=== PATIENT | female | born 1970 | race Caucasian/White ===

== ENCOUNTER 2017-06-11 03:36 | Emergency (ER) | payer SELFPAY ==
[~2017-06-11] VITALS: Ht 165.1 cm; Wt 58.5 kg
[2017-06-11 03:42] VITALS: Ht 165.1 cm; Wt 58.5 kg
== END 2017-06-11 05:24 | disposition left against medical advice (07) ==
LOC: E/R 03:36
DX: Z53.21 Procedure and treatment not carried out due to patient leaving prior to being seen by health care provider (principal)

== ENCOUNTER 2017-07-23 09:58 | Inpatient (IN) | payer OTHER ==
[~2017-07-23] VITALS: Ht 165.1 cm; Wt 58.7 kg
[2017-07-23] MEDS ORDERED: ACETAMINOPHEN 325 MG TAB PO PRN ×2 (11:00→19:00)
[2017-07-23] MEDS ORDERED: HYDROmorphONE 1 MG/ML SYG IV STA ×2 (11:02→16:43)
[2017-07-23] MEDS: ONDANSETRON 4 MG INJ IV PRN ×2 (11:11→16:48)
--- NOTE | 2017-07-23 11:22 | ERA ---
ER Documentation Chief Complaint Date/Time DATE: 07/23/17 TIME: 11:10 Chief Complaint SENT FROM [facility] FOR ADMISSION DX: LUNG MASS HPI 47-year-old female with a history of right-sided lung mass diagnosed about 5-6 months ago presenting with worsening chest pain. She was transferred from [facility] for admission to this hospital. She was told her mass was getting bigger. She has not been able to get a biopsy yet. She has associated shortness of breath but no fever or chills. She was already accepted for admission by the hospitalist here. Patient currently complains of 10 out of 10 right-sided chest pain, worse with inspiration. Pain radiates to her back, no alleviating factors. ROS All systems reviewed and are negative except as per history of present illness. Allergies Allergies: Coded Allergies: No Known Allergy (Unverified , 07/23/17) PMhx/Soc History of Surgery: Yes (HYSTERECTOMY,TUBAL LIGATION) Anesthesia Reaction: No Hx Neurological Disorder: No Hx Respiratory Disorders: No Hx Cardiac Disorders: No Hx Psychiatric Problems: No Hx Miscellaneous Medical Probl: Yes (LUNG MASS) Hx Alcohol Use: No Hx Substance Use: No Hx Tobacco Use: Yes Smoking Status: Current some day smoker FmHx Family History: No diabetes Physical Exam Vitals Vital Signs Date Time Temp Pulse Resp B/P Pulse Ox O2 Delivery O2 Flow Rate FiO2 07/23/17 10:13 98.0 99 16 107/56 99 Physical Exam Const: Nontoxic, crying secondary to pain, no respiratory distress Head: Atraumatic Eyes: Normal Conjunctiva ENT: Normal External Ears, Nose and Mouth. Neck: Full range of motion..~ No meningismus. Resp: Clear to auscultation bilaterally. No crackles, wheezes Cardio: Regular rate and rhythm, no murmurs Abd: Soft, non tender, non distended. Normal bowel sounds Skin: No petechiae or rashes Back: No midline or flank tenderness Ext: No cyanosis, or edema. No calf tenderness Neur: Awake and alert Psych: Normal Mood and Affect Results 24 hrs Current Medications Medications (Trade) Dose Ordered Sig/Danish Route PRN Reason Start Time Stop Time Status Last Admin Dose Admin Ondansetron HCl (Zofran Inj) 4 mg BRIDGE ORDER PRN IV NAUSEA AND/OR VOMITING 07/23/17 11:00 07/24/17 10:59 Acetaminophen (Tylenol Tab) 650 mg ER BRIDGE PRN PO MILD PAIN/FEVER 07/23/17 11:00 07/24/17 10:59 Hydromorphone HCl (Dilaudid) 1 mg ONCE STAT IV 07/23/17 11:02 07/23/17 11:03 DC Procedures/MDM Patient is presenting with a right-sided lung mass causing right-sided chest pain that is worsening. Workup was done at the outside hospital and showed no significant abnormalities in her lab work. There was no evidence of pneumonia. I do not think any further workup is necessary in the ED. The patient will be admitted to the hospitalist group for further workup. She was treated with Dilaudid IV for her pain. Dr Sorensen was consulted for admission. Departure Diagnosis: Primary Impression: Right-sided chest pain Additional Impression: Mass of right lung Condition: CHAYITO Richardson MD Jul 23, 2017 11:20
[2017-07-23 13:33] LABS: BASOPHILS % 0.3 % (0.0-2.0); EOSINOPHILS # 0.5 10^3/ul (0.0-0.5); HEMATOCRIT 33.7 % (37.0-47.0); HEMOGLOBIN 10.9 g/dl (12.0-16.0); LYMPHOCYTES # 2.1 10^3/ul (0.8-2.9); LYMPHOCYTES % 19.9 % (15.0-51.0); MEAN CORPUSCULAR HEMOGLOBIN 27.4 pg (29.0-33.0); MEAN CORPUSCULAR HGB CONC 32.3 g/dl (32.0-37.0); MEAN CORPUSCULAR VOLUME 84.7 fl (82.0-101.0); MEAN PLATELET VOLUME 9.3 fl (7.4-10.4); MONOCYTE # 0.8 10^3/ul (0.3-0.9); MONOCYTES % 7.1 % (0.0-11.0); NEUTROPHIL # 7.3 10^3/ul (1.6-7.5); NEUTROPHILS % 67.5 % (39.0-77.0); PLATELET COUNT 321 10^3/UL (140-415); RED BLOOD COUNT 3.98 10^6/ul (4.20-5.40); RED CELL DISTRIBUTION WIDTH 12.5 % (11.5-14.5); WHITE BLOOD COUNT 10.8 10^3/ul (4.8-10.8)
[2017-07-23 13:54] LABS: ALANINE AMINOTRANSFERASE 26 IU/L (13-69); ALBUMIN 3.8 g/dl (3.3-4.9); ALBUMIN/GLOBULIN RATIO 0.97; ALKALINE PHOSPHATASE 97 IU/L (42-121); ANION GAP 11 (8-16); ASPARTATE AMINO TRANSFERASE 27 IU/L (15-46); BILIRUBIN,INDIRECT 0.1 mg/dl (0-1.1); BILIRUBIN,TOTAL 0.1 mg/dl (0.2-1.3); BLOOD UREA NITROGEN 9 mg/dl (7-20); CALCIUM 9.3 mg/dl (8.4-10.2); CARBON DIOXIDE 28 mmol/L (21-31); CHLORIDE 104 mmol/L (97-110); CREATININE 0.63 mg/dl (0.44-1.00); GLUCOSE 98 mg/dl (70-220); POTASSIUM 4.6 mmol/L (3.5-5.1); SODIUM 138 mmol/L (135-144); TOTAL PROTEIN 7.7 g/dl (6.1-8.1)
[2017-07-23 14:09] LABS: TROPONIN-I < 0.012 ng/ml (0.00-0.12)
--- NOTE | 2017-07-23 15:48 | HP ---
Date/Time of Note Date/Time of Note DATE: 07/23/17 TIME: 15:44 Assessment/Plan VTE Prophylaxis VTE Prophylaxis Intervention: SCD's Assessment/Plan Chief Complaint/Hosp Course Impression and plan 1. Right lung tumor. We will get clinical engineering director to follow. Tentative plan for right lung tumor biopsy. Will provide with analgesics as needed. 2. Nicotine use. Cessation advised. 3. Anemia. Monitor level. Follow-up on iron panel. Admission process time is greater than 40 minutes Discussed plan of care with Dr. Baltazar Problems: HPI/ROS Admit Date/Time Admit Date/Time Hx of Present Illness This is a 47-year-old female with recent diagnosis of right lung tumor worked up in March 2017 we does follow-up with outpatient clinical engineering director Dr. Trujillo, who came to [facility] from outside hospital ([place]) due to insurance issue due to reports of increased right-sided chest pain. Patient reports that her chest pain started yesterday afternoon 1 day prior to admission and progressively got worse. No associated symptoms. She does report that she states the pain is 10 out of 10 at times and feels like something is "pushing on her chest". Patient did reportedly have CT scan imaging done at [place] that showed her to have an enlarging right lung mass. On the results she was noted to be slightly anemic hemoglobin of 10.9 and hematocrit of 33.7. Basic metabolic unremarkable. Vital signs overall remained stable at present and she reports no shortness of breath with oxygen saturation at 90% room air. Patient did state that she was tentatively planned for needle guided biopsy as outpatient however due to her worsening pain she subsequently went to [facility]. We will evaluate her for the aformentiond issues. ROS 12 Point review of systems obtained and entirely negative except that mentioned in history of present illness PMH/Family/Social Past Medical History Medical/surgical history 1. Recent diagnosis of right lung tumor in March 2017 2. Hysterectomy Family History Significant Family History: other (Mother: Colon cancer) Social History Smoking Status: Former smoker (Quit smoking in March 2017 however reports a 25+ year history of cigarette smoking 1 pack every 2-3 days) Drug Use: none Exam/Review of Systems Vital Signs Vitals Vital Signs Date Time Temp Pulse Resp B/P Pulse Ox O2 Delivery O2 Flow Rate FiO2 07/23/17 12:33 84 18 94/68 98 Room Air 07/23/17 10:13 98.0 Exam Constitutional: alert, oriented Psych: no complaints Head: normocephalic Neck: non-tender, supple Respiratory: diminished breath sounds (right lung field) Gastrointestinal: non-tender, soft Musculoskeletal: nl extremities to inspection Neurological: CROWN BUFFER II-XII intact, nl mental status, nl speech Skin: nl turgor Labs Result Diagram: 07/23/17 1320 07/23/17 1320 REANNA BARROSO Jul 23, 2017 15:48
--- NOTE | 2017-07-23 17:29 | CONS ---
Date/Time of Note Date/Time of Note DATE: 07/23/17 TIME: 17:28 Consultation Date/Type/Reason Admit Date/Time Date of Consultation: Jul 23, 2017 Type of Consultation: pulmonary Hx of Present Illness dictated # [id number] Psychological: no complaints Social History Smoking Status: Former smoker (Quit smoking in March 2017 however reports a 25+ year history of cigarette smoking 1 pack every 2-3 days) Drug Use: none Exam/Review of Systems Vital Signs Vitals Vital Signs Date Time Temp Pulse Resp B/P Pulse Ox O2 Delivery O2 Flow Rate FiO2 07/23/17 16:52 99 18 96/60 98 Room Air 07/23/17 10:13 98.0 Results Result Diagram: 07/23/17 1320 07/23/17 1320 Results 24 hrs Laboratory Tests Test 07/23/17 13:20 White Blood Count 10.8 Red Blood Count 3.98 L Hemoglobin 10.9 L Hematocrit 33.7 L Mean Corpuscular Volume 84.7 Mean Corpuscular Hemoglobin 27.4 L Mean Corpuscular Hemoglobin Concent 32.3 Red Cell Distribution Width 12.5 Platelet Count 321 Mean Platelet Volume 9.3 Neutrophils % 67.5 Lymphocytes % 19.9 Monocytes % 7.1 Eosinophils % 5.0 Basophils % 0.3 Nucleated Red Blood Cells % 0.0 Neutrophils # 7.3 Lymphocytes # 2.1 Monocytes # 0.8 Eosinophils # 0.5 Basophils # 0.0 Nucleated Red Blood Cells # 0.0 Sodium Level 138 Potassium Level 4.6 Chloride Level 104 Carbon Dioxide Level 28 Anion Gap 11 Blood Urea Nitrogen 9 Creatinine 0.63 Glucose Level 98 Calcium Level 9.3 Total Bilirubin 0.1 L Direct Bilirubin 0.00 Indirect Bilirubin 0.1 Aspartate Amino Transf (AST/SGOT) 27 Alanine Aminotransferase (ALT/SGPT) 26 Alkaline Phosphatase 97 Troponin I < 0.012 Total Protein 7.7 Albumin 3.8 Globulin 3.90 H Albumin/Globulin Ratio 0.97 ERIK PATTEN Jul 23, 2017 17:29
[2017-07-23 17:43] VITALS: BP 88/50; RESP 18
[2017-07-23 17:55] VITALS: Ht 165.1 cm; Wt 58.7 kg
[2017-07-23] MEDS ORDERED: BISACODYL 10 MG SUPP PR PRN (19:00)
[2017-07-23] MEDS ORDERED: ONDANSETRON 4 MG INJ IV PRN (19:00)
[2017-07-23] MEDS ORDERED: HYDROCODONE/APAP (5/325) TAB PO PRN (19:00)
[2017-07-23] MEDS ORDERED: DOCUSATE SODIUM 100 MG CAP PO PRN (19:00)
[2017-07-23] MEDS ORDERED: ACETAMINOPHEN 650 MG SUPP PR PRN (19:00)
[2017-07-23] MEDS ORDERED: MAGNESIUM HYDROXIDE 30ML CUP PO PRN (19:00)
[2017-07-23 20:17] VITALS: BP 92/50; RESP 18
[2017-07-23] MEDS: FAMOTIDINE 20 MG INJ IV SCH (20:48)
[2017-07-23] MEDS: morphine 2 MG INJ IV PRN (20:53)
[2017-07-24] MEDS: HYDROCODONE/APAP (5/325) TAB PO PRN ×2 (00:42→23:56)
[2017-07-24] MEDS: ONDANSETRON 4 MG INJ IV PRN ×3 (00:42→20:57)
[2017-07-24 02:44] VITALS: BP 86/48; RESP 16
[2017-07-24 05:57] LABS: BASOPHILS % 0.2 % (0.0-2.0); EOSINOPHILS # 0.5 10^3/ul (0.0-0.5); EOSINOPHILS % 4.2 % (0.0-7.0); HEMATOCRIT 33.7 % (37.0-47.0); HEMOGLOBIN 10.5 g/dl (12.0-16.0); LYMPHOCYTES # 2.2 10^3/ul (0.8-2.9); LYMPHOCYTES % 17.4 % (15.0-51.0); MEAN CORPUSCULAR HEMOGLOBIN 26.3 pg (29.0-33.0); MEAN CORPUSCULAR HGB CONC 31.2 g/dl (32.0-37.0); MEAN CORPUSCULAR VOLUME 84.3 fl (82.0-101.0); MEAN PLATELET VOLUME 9.8 fl (7.4-10.4); MONOCYTE # 0.9 10^3/ul (0.3-0.9); MONOCYTES % 6.8 % (0.0-11.0); NEUTROPHIL # 8.9 10^3/ul (1.6-7.5); NEUTROPHILS % 71.2 % (39.0-77.0); PLATELET COUNT 338 10^3/UL (140-415); RED CELL DISTRIBUTION WIDTH 12.6 % (11.5-14.5); WHITE BLOOD COUNT 12.5 10^3/ul (4.8-10.8)
[2017-07-24 06:18] LABS: ALBUMIN 3.8 g/dl (3.3-4.9); ALBUMIN/GLOBULIN RATIO 1.05; BILIRUBIN,INDIRECT 0.3 mg/dl (0-1.1); BILIRUBIN,TOTAL 0.3 mg/dl (0.2-1.3); CALCIUM 9.4 mg/dl (8.4-10.2); CHOL/HDL RATIO 6.2 RATIO; CREATININE 0.71 mg/dl (0.44-1.00); MAGNESIUM 2.1 mg/dl (1.7-2.5); PHOSPHORUS 4.7 mg/dl (2.5-4.9); POTASSIUM 4.5 mmol/L (3.5-5.1); TOTAL PROTEIN 7.4 g/dl (6.1-8.1)
[2017-07-24 06:43] LABS: T3 UPTAKE 33.7 % (23.5-40.5)
[2017-07-24 07:18] LABS: THYROID STIMULATING HORMONE 0.754 MIU/L (0.465-4.680)
[2017-07-24] MEDS: morphine 2 MG INJ IV PRN ×4 (08:08→20:57)
[2017-07-24] MEDS: FAMOTIDINE 20 MG INJ IV SCH (08:08)
--- NOTE | 2017-07-24 08:09 | CONS ---
DATE OF ADMISSION: 07/23/2017 DATE OF CONSULTATION: PULMONARY CONSULTATION REASON FOR REFERRAL: Evaluation of lung mass. HISTORY OF PRESENT ILLNESS: Ms. Emery is a pleasant 47-year-old white female who came into the em ergency room with complaints of not feeling well with chest pain involving right upper chest as well as right arm pain. According to the patient, she had been diagnosed with lung tumor involving righ t upper lobe in March of this year and has undergone PET imaging as well as CT scan; however, no biop sy has been done yet. The patient denies any shortness of breath, any fever, chills, hemoptysis, sp utum production. PAST MEDICAL HISTORY: 1. As above. No other medical illnesses. 2. No history of any surgeries. MEDICATIONS: The patient currently on: 1. Acetaminophen on a p.r.n. basis. 2. Dilaudid on a p.r.n. basis. 3. Zofran on a p.r.n. basis. ALLERGIES: NONE. SOCIAL HISTORY: Patient smokes about pack a day. No history of alcohol or drug abuse. FAMILY HISTORY: She is . She has 3 children, no history of any malignancy in the family. 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 REVIEW OF SYSTEMS: Denies any headache, seizures, visual changes, sinus symptoms, postnasal drip, d ysphagia, odynophagia. Complains of mild right upper chest discomfort. Denies any hoarseness, any cough, sputum production, wheezing, any abdominal pain, nausea, vomiting, melena, hematochezia, any urinary symptoms, any edema, orthopnea, PND or any weight loss, any skin changes, any new arthritis symptoms. PHYSICAL EXAMINATION: GENERAL: Young woman, awake, alert, currently in no distress. VITAL SIGNS: Temperature is 98 degree Fahrenheit, respiratory rate is 18 per minute, pulse 88 per m inute, blood pressure is 107/56, O2 sat 99% on room air. HEENT: Supple neck, no JVD, no lymphadenopathy, midline trachea, no thyromegaly. Pharynx clear, no neck bruits. Patient has fair dentition. Pupils are equal and reactive to light. CHEST: Clear to auscultation. HEART: S1, S2 audible. No murmurs, regular rhythm. ABDOMEN: Soft, nontender, nondistended. Bowel sounds audible. EXTREMITIES: No edema, no clubbing. Pulses 2+ bilaterally. NEUROLOGIC: MOLD REPAIR TECHNICIAN exam: No focal deficit. LABORATORY DATA: White count is 10.8, hemoglobin 10.9, platelet count of 321. Sodium 138, potassiu m 4.6, chloride 104, bicarbonate 28, glucose 98, BUN 9, creatinine 0.6, AST of 27, ALT 26. ASSESSMENT: The patient admitted with right chest discomfort with recent diagnosis of lung mass carmelita iting biopsy. RECOMMENDATIONS: Continue current treatment. The patient is going to have a CT of the chest ayad t from home for our review. According to her, a CT scan of chest was done in early June. Furt her recommendations to be done once CT imaging is obtained and reviewed. Patient may need either br onchoscopy or a needle CT biopsy. Dictated By: ERIK PATTEN MD AQ/NTS Conf#: [id number] DID#: [id number] CC: DAISHA SIM MD; EMILY KEARNS MD;*EndCC*
[2017-07-24 08:15] VITALS: BP 91/52; RESP 20
--- NOTE | 2017-07-24 09:28 | CONS ---
Date/Time of Note Date/Time of Note DATE: 07/24/17 TIME: 09:26 Assessment/Plan Assessment/Plan Chief Complaint/Hosp Course dictated # [id number] Problems: Additional Assessment/Plan Outside CD of the CT chest was reviewed from June 23, 2017 showing by 10 x 6 cm right upper lobe mass. Assessment and recommendations; 1. Patient admitted for evaluation of right upper lobe mass which is appearing to be primary bronchogenic carcinoma until proven otherwise. Schedule CT-guided biopsy. Consultation Date/Type/Reason Admit Date/Time Jul 23, 2017 at 10:52 Initial Consult Date 07/23/17 Type of Consultation: pulmonary 24 HR Interval Summary Free Text/Dictation Patient's condition is stable. Denies any shortness of breath, chest pain. Feeling of chest congestion and tightness has resolved. General exam; middle-aged woman, awake alert, currently in no distress. Exam/Review of Systems Vital Signs Vitals Vital Signs Date Time Temp Pulse Resp B/P Pulse Ox O2 Delivery O2 Flow Rate FiO2 07/24/17 08:15 98.6 90 20 91/52 98 07/23/17 16:52 Room Air Intake and Output 07/23/17 07/23/17 07/24/17 15:00 23:00 07:00 Intake Total 420 ml Balance 420 ml Exam HEENT exam; supple neck, no JVD. No lymphadenopathy. Midline trachea. No thyromegaly. Patient has fair dentition. Chest exam; clear to auscultation. S1-S2 audible, no murmurs. Regular rhythm. Abdomen exam; soft, nontender. No organomegaly. Bowel sounds audible. Extremities; no peripheral edema. No clubbing. Pulses 2+ bilaterally. HOP TRAINER exam; no focal deficit. Results Result Diagram: 07/24/17 0457 07/24/17 0457 Results 24 hrs Laboratory Tests Test 07/23/17 13:20 07/24/17 04:57 White Blood Count 10.8 12.5 H Red Blood Count 3.98 L 4.00 L Hemoglobin 10.9 L 10.5 L Hematocrit 33.7 L 33.7 L Mean Corpuscular Volume 84.7 84.3 Mean Corpuscular Hemoglobin 27.4 L 26.3 L Mean Corpuscular Hemoglobin Concent 32.3 31.2 L Red Cell Distribution Width 12.5 12.6 Platelet Count 321 338 Mean Platelet Volume 9.3 9.8 Neutrophils % 67.5 71.2 Lymphocytes % 19.9 17.4 Monocytes % 7.1 6.8 Eosinophils % 5.0 4.2 Basophils % 0.3 0.2 Nucleated Red Blood Cells % 0.0 0.0 Neutrophils # 7.3 8.9 H Lymphocytes # 2.1 2.2 Monocytes # 0.8 0.9 Eosinophils # 0.5 0.5 Basophils # 0.0 0.0 Nucleated Red Blood Cells # 0.0 0.0 Sodium Level 138 137 Potassium Level 4.6 4.5 Chloride Level 104 102 Carbon Dioxide Level 28 30 Anion Gap 11 10 Blood Urea Nitrogen 9 8 Creatinine 0.63 0.71 Glucose Level 98 92 Calcium Level 9.3 9.4 Total Bilirubin 0.1 L 0.3 Direct Bilirubin 0.00 0.00 Indirect Bilirubin 0.1 0.3 Aspartate Amino Transf (AST/SGOT) 27 21 Alanine Aminotransferase (ALT/SGPT) 26 23 Alkaline Phosphatase 97 104 Troponin I < 0.012 Total Protein 7.7 7.4 Albumin 3.8 3.8 Globulin 3.90 H 3.60 H Albumin/Globulin Ratio 0.97 1.05 Hemoglobin A1c 5.6 Phosphorus Level 4.7 Magnesium Level 2.1 Triglycerides Level 132 Cholesterol Level 180 LDL Cholesterol, Calculated 125 HDL Cholesterol 29 L Cholesterol/HDL Ratio 6.2 Thyroid Stimulating Hormone (TSH) 0.754 Free Thyroxine Index 3.67 Thyroxine (T4) 10.9 Triiodothyronine (T3) Uptake 33.7 Medications Medications Current Medications Ondansetron HCl (Zofran Inj) 4 mg Q6H PRN IV NAUSEA AND/OR VOMITING Last administered on 07/24/17t 08:16; Admin Dose 4 MG; Start 07/23/17 at 19:00 Acetaminophen (Tylenol Tab) 650 mg Q6H PRN PO PAIN LEVEL 1-3 OR FEVER; Start 07/23/17 at 19:00 Acetaminophen (Tylenol Supp) 650 mg Q6H PRN [place] PAIN LEVEL 1-3 OR FEVER; Start 07/23/17 at 19:00 Acetaminophen/ Hydrocodone Bitart ([place] (5/325)) 1 tab Q6H PRN PO MODERATE PAIN LEVEL 4-6; Start 07/23/17 at 19:00 Acetaminophen/ Hydrocodone Bitart ([place] (5/325)) 2 tab Q6H PRN PO SEVERE PAIN LEVEL 7-10 Last administered on 07/24/17 00:42; Admin Dose 2 TAB; Start 07/23 at 19:00 Morphine Sulfate (morphine) 2 mg Q4H PRN IV SEVERE PAIN LEVEL 7-10 Last administered on 07/24/17 08:08; Admin Dose 2 MG; Start 07/23/17 at 19:00 Docusate Sodium (Colace) 100 mg Q12H PRN PO CONSTIPATION; Start 07/23/17 at 19 :00 Magnesium Hydroxide (Milk Of Mag) 30 ml DAILY PRN PO CONSTIPATION; Start 07/23 at 19:00 Bisacodyl (Dulcolax Supp) 10 mg DAILY PRN [place] CONSTIPATION; Start 07/23/17 at 19:00 Famotidine (Pepcid Iv) 20 mg Q12 IV Last administered on 07/24/17 08:08; Admin Dose 20 MG; Start 07/23/17 at 21:00 ERIK PATTNE Jul 24, 2017 09:28
[2017-07-24 15:36] VITALS: BP 84/50; RESP 20
[2017-07-24] MEDS: FAMOTIDINE 20 MG TAB PO SCH (20:57)
--- NOTE | 2017-07-24 22:09 | PN ---
Date/Time of Note Date/Time of Note DATE: 07/24/17 TIME: 22:07 Assessment/Plan VTE Prophylaxis VTE Prophylaxis Intervention: SCD's Lines/Catheters IV [facility] Saline Lock Urinary Cath still in place: No Assessment/Plan Chief Complaint/Hosp Course Impression and plan 1. Right lung tumor. [employer] following. Tentative plan for tumor biopsy. 2. Nicotine use. Cessation advised. 3. Anemia. Stable at present. Monitor H&H. Disposition and plan: Continue with analgesics as needed for pain. Tentative plan for tumor biopsy. Follow-up on pathology. Continue in-house monitoring for now. Discussed plan of care with Dr. Baltazar Problems: Subjective 24 Hr Interval Summary Free Text/Dictation Still reports having some right-sided chest pressure. No reported shortness of breath associated. No radiation of pain. Exam/Review of Systems Vital Signs Vitals Vital Signs Date Time Temp Pulse Resp B/P Pulse Ox O2 Delivery O2 Flow Rate FiO2 07/24/17 15:36 98.6 103 20 84/50 95 07/23/17 16:52 Room Air Intake and Output 07/23/17 07/23/17 07/24/17 15:00 23:00 07:00 Intake Total 420 ml Balance 420 ml Exam Constitutional: alert, oriented Psych: nl mood/affect Head: normocephalic Neck: supple, No jvd Respiratory: other Cardiovascular: regular rate and rhythm (Diminished lung sounds on right lung field) Gastrointestinal: non-tender, soft Extremities: normal pulses Neurological: ELECTROMECHANICAL TECHNOLOGIST II-XII intact, nl mental status, nl speech Results Result Diagram: 07/24/17 0457 07/24/17 0457 Results 24 hrs Laboratory Tests Test 07/24/17 04:57 White Blood Count 12.5 H Red Blood Count 4.00 L Hemoglobin 10.5 L Hematocrit 33.7 L Mean Corpuscular Volume 84.3 Mean Corpuscular Hemoglobin 26.3 L Mean Corpuscular Hemoglobin Concent 31.2 L Red Cell Distribution Width 12.6 Platelet Count 338 Mean Platelet Volume 9.8 Neutrophils % 71.2 Lymphocytes % 17.4 Monocytes % 6.8 Eosinophils % 4.2 Basophils % 0.2 Nucleated Red Blood Cells % 0.0 Neutrophils # 8.9 H Lymphocytes # 2.2 Monocytes # 0.9 Eosinophils # 0.5 Basophils # 0.0 Nucleated Red Blood Cells # 0.0 Sodium Level 137 Potassium Level 4.5 Chloride Level 102 Carbon Dioxide Level 30 Anion Gap 10 Blood Urea Nitrogen 8 Creatinine 0.71 Glucose Level 92 Hemoglobin A1c 5.6 Calcium Level 9.4 Phosphorus Level 4.7 Magnesium Level 2.1 Total Bilirubin 0.3 Direct Bilirubin 0.00 Indirect Bilirubin 0.3 Aspartate Amino Transf (AST/SGOT) 21 Alanine Aminotransferase (ALT/SGPT) 23 Alkaline Phosphatase 104 Total Protein 7.4 Albumin 3.8 Globulin 3.60 H Albumin/Globulin Ratio 1.05 Triglycerides Level 132 Cholesterol Level 180 LDL Cholesterol, Calculated 125 HDL Cholesterol 29 L Cholesterol/HDL Ratio 6.2 Thyroid Stimulating Hormone (TSH) 0.754 Free Thyroxine Index 3.67 Thyroxine (T4) 10.9 Triiodothyronine (T3) Uptake 33.7 Medications Medications Current Medications Acetaminophen (Tylenol Tab) 650 mg Q6H PRN PO PAIN LEVEL 1-3 OR FEVER; Start 07/23/17 at 19:00 Acetaminophen (Tylenol Supp) 650 mg Q6H PRN [place] PAIN LEVEL 1-3 OR FEVER; Start 07/23/17 at 19:00 Acetaminophen/ Hydrocodone Bitart ([place] (5/325)) 1 tab Q6H PRN PO MODERATE PAIN LEVEL 4-6; Start 07/23/17 at 19:00 Acetaminophen/ Hydrocodone Bitart ([place] (5/325)) 2 tab Q6H PRN PO SEVERE PAIN LEVEL 7-10 Last administered on 07/24/17 00:42; Admin Dose 2 TAB; Start 07/23 at 19:00 Morphine Sulfate (morphine) 2 mg Q4H PRN IV SEVERE PAIN LEVEL 7-10 Last administered on 07/24/17 20:57; Admin Dose 2 MG; Start 07/23/17 at 19:00 Docusate Sodium (Colace) 100 mg Q12H PRN PO CONSTIPATION; Start 07/23/17 at 19 :00 Magnesium Hydroxide (Milk Of Mag) 30 ml DAILY PRN PO CONSTIPATION; Start 07/23 at 19:00 Bisacodyl (Dulcolax Supp) 10 mg DAILY PRN [place] CONSTIPATION; Start 07/23/17 at 19:00 Famotidine (Pepcid) 20 mg BID PO Last administered on 07/24/17 20:57; Admin Dose 20 MG; Start 07/24/17 at 21:00 Ondansetron HCl (Zofran Inj) 4 mg Q4H PRN IV NAUSEA AND/OR VOMITING Last administered on 07/24/17t 20:57; Admin Dose 4 MG; Start 07/24/17 at 17:00 REANNA BARROSO Jul 24, 2017 22:09
[2017-07-25] VITALS (8 sets, daily range): BP systolic 90–117; BP diastolic 50–57; PULSE 87–97; RESP 18–88
[2017-07-25] MEDS: ONDANSETRON 4 MG INJ IV PRN ×2 (05:13→19:58)
[2017-07-25] MEDS: morphine 2 MG INJ IV PRN ×3 (05:13→19:51)
[2017-07-25 06:38] LABS: INR 1.06; PROTIME 13.8 Sec (12.2-14.2); PT RATIO 1.1
[2017-07-25] MEDS ORDERED: LIDOCAINE 1% (MDV) 20 ML INJ ONE (08:21)
[2017-07-25] MEDS ORDERED: FENTAnyl 50 MCG/ML VIAL ONE (08:45)
[2017-07-25] MEDS ORDERED: ONDANSETRON 4 MG INJ ONE (08:45)
[2017-07-25] MEDS ORDERED: MIDAZOLAM 1 MG/ML 2 ML INJ ONE (08:45)
--- NOTE | 2017-07-25 10:11 | RADRPT ---
PROCEDURE: XR Chest. CLINICAL INDICATION: Status post lung biopsy TECHNIQUE: Single portable view of the chest was obtained COMPARISON: Same day FINDINGS: The heart, mediastinum and lungs are unchanged. There is no pneumothorax status post lung biopsy. There is a large right lung mass. RPTAT:AA IMPRESSION: No significant change. No pneumothorax status post lung biopsy. .Raffy Murrieta MD, MD Date Time Electronically viewed and signed by .Raffy Murrieta MD, on 07/25/2017 10:11 .S/
--- NOTE | 2017-07-25 10:13 | RADRPT ---
PROCEDURE: CT-guided right lung biopsy CLINICAL INDICATION: Lung mass TECHNIQUE: The risks and benefits of the procedure were discussed with the patient. Risks include but are not l imited to bleeding, pneumothorax. Informed consent was obtained. The patient was placed supine on e CT table. Multiple axial images were obtained through the chest to localize the lung mass . A site in the patient's skin was selected and the skin was marked. The area was cleaned and draped in the usual sterile fashion. 1% lidocaine was utilized. Under direct CT guidance, a 19-gauge coaxial biops y needle was advanced into the mass. 6 core specimens were obtained with a 20-gauge biopsy gun. The specimens were placed in formalin and taken to the pathology lab. Post procedure CT demonstrates no immediate complications such as pneumothorax. A sterile dressing was applied. DLP n/a (Brushing Machine Operator scanner) CTDIvol n/a (Brushing Machine Operator scanner) One or more of the following post reduction techniques were used: - Automated exposure control. - Adjustment of the mA and/or Kv according to patient's size. - Use of iterative reconstruction technique COMPARISON: None. FINDINGS: Large right lung mass. RPTAT: AA IMPRESSION: Uncomplicated CT-guided lung biopsy. Post procedure chest x-ray pending. .Raffy Murrieta MD, MD Date Time Electronically viewed and signed by .Raffy Murrieta MD, MD on 07/25/2017 10:13 .S/
[2017-07-25] MEDS: FAMOTIDINE 20 MG TAB PO SCH ×2 (12:21→19:51)
--- NOTE | 2017-07-25 12:22 | RADRPT ---
PROCEDURE: XR Chest. CLINICAL INDICATION: Status post lung biopsy TECHNIQUE: Single portable view of the chest was obtained COMPARISON: Same day FINDINGS: The heart, mediastinum and lungs are unchanged. There is no pneumothorax status post lung biopsy. There is a large right lung mass. RPTAT:AA IMPRESSION: No significant change. No pneumothorax status post lung biopsy. .Raffy Murrieta MD, MD Date Time Electronically viewed and signed by .Raffy Murrieta MD, on 07/25/2017 12:22 .S/
[2017-07-25] MEDS: HYDROCODONE/APAP (5/325) TAB PO PRN (12:35)
--- NOTE | 2017-07-25 12:58 | CONS ---
Date/Time of Note Date/Time of Note DATE: 07/25/17 TIME: 12:56 Assessment/Plan Assessment/Plan Chief Complaint/Hosp Course dictated # [id number] Problems: Additional Assessment/Plan Assessment and recommendations; 1. Patient admitted with chest discomfort with a history of very large right upper lobe mass. Patient underwent CT biopsy today. Findings are worrisome for a primary malignant process. Patient can be discharged home. She does have good outpatient follow-up. Consultation Date/Type/Reason Admit Date/Time Jul 23, 2017 at 10:52 Initial Consult Date 07/23/17 Type of Consultation: pulmonary 24 HR Interval Summary Free Text/Dictation Patient's condition is stable. Denies any shortness of breath, chest pain. Any coughing or sputum production. General exam; middle-aged woman, awake and alert. Currently in no distress. Exam/Review of Systems Vital Signs Vitals Vital Signs Date Time Temp Pulse Resp B/P Pulse Ox O2 Delivery O2 Flow Rate FiO2 07/25/17 12:20 98.1 87 87 117/57 98 Room Air Intake and Output 07/24/17 07/24/17 07/25/17 15:00 23:00 07:00 Intake Total 1200 ml 950 ml Balance 1200 ml 950 ml Exam HEENT exam; supple neck, no JVD. No lymphadenopathy. Midline trachea. No thyromegaly. Patient has fair dentition. No neck masses. Chest exam; diminished breath sounds right upper lobe. Rest of the lung hurt are clear. S1-S2 audible, no murmurs. Regular rhythm. Abdomen exam; soft, nontender. No organomegaly. Bowel sounds audible. Extremity exam; no peripheral edema. No clubbing. HEDDLER exam; no focal deficit. Results Result Diagram: 07/24/17 0457 07/24/17 0457 Results 24 hrs Laboratory Tests Test 07/25/17 05:09 Prothrombin Time 13.8 Prothrombin Time Ratio 1.1 INR International Normalized Ratio 1.06 Medications Medications Current Medications Acetaminophen (Tylenol Tab) 650 mg Q6H PRN PO PAIN LEVEL 1-3 OR FEVER; Start 07/23/17 at 19:00 Acetaminophen (Tylenol Supp) 650 mg Q6H PRN [place] PAIN LEVEL 1-3 OR FEVER; Start 07/23/17 at 19:00 Acetaminophen/ Hydrocodone Bitart ([place] (5/325)) 1 tab Q6H PRN PO MODERATE PAIN LEVEL 4-6; Start 07/23/17 at 19:00 Acetaminophen/ Hydrocodone Bitart ([place] (5/325)) 2 tab Q6H PRN PO SEVERE PAIN LEVEL 7-10 Last administered on 07/25/17 12:35; Admin Dose 2 TAB; Start 07/23 at 19:00 Morphine Sulfate (morphine) 2 mg Q4H PRN IV SEVERE PAIN LEVEL 7-10 Last administered on 07/25/17 10:49; Admin Dose 2 MG; Start 07/23/17 at 19:00 Docusate Sodium (Colace) 100 mg Q12H PRN PO CONSTIPATION; Start 07/23/17 at 19 :00 Magnesium Hydroxide (Milk Of Mag) 30 ml DAILY PRN PO CONSTIPATION; Start 07/23 at 19:00 Bisacodyl (Dulcolax Supp) 10 mg DAILY PRN [place] CONSTIPATION; Start 07/23/17 at 19:00 Famotidine (Pepcid) 20 mg BID PO Last administered on 07/25/17 12:21; Admin Dose 20 MG; Start 07/24/17 at 21:00 Ondansetron HCl (Zofran Inj) 4 mg Q4H PRN IV NAUSEA AND/OR VOMITING Last administered on 07/25/17 05:13; Admin Dose 4 MG; Start 07/24/17 at 17:00 ERIK PATTEN Jul 25, 2017 12:58
--- NOTE | 2017-07-25 16:10 | PN ---
Date/Time of Note Date/Time of Note DATE: 07/25/17 TIME: 16:08 Assessment/Plan VTE Prophylaxis VTE Prophylaxis Intervention: SCD's Lines/Catheters IV Catheter Type (from Nrs): Saline Lock Urinary Cath still in place: No Assessment/Plan Assessment/Plan 1. Right lung mass-. Digital Sales Planner following. s/p CT guided biopsy for Lung mass, will wait for Bx report 2. Nicotine use. Cessation advised. 3. Anemia. Stable at present. Monitor H&H. Disposition and plan: Continue with analgesics as needed for pain. Tentative plan for tumor biopsy. Follow-up on pathology. Continue in-house monitoring for now Subjective 24 Hr Interval Summary Free Text/Dictation s/p CT guided biopsy of right lung mass, BP stable Exam/Review of Systems Vital Signs Vitals Vital Signs Date Time Temp Pulse Resp B/P Pulse Ox O2 Delivery O2 Flow Rate FiO2 07/25/17 12:20 98.1 87 87 117/57 98 Room Air Intake and Output 07/24/17 07/24/17 07/25/17 15:00 23:00 07:00 Intake Total 1200 ml 950 ml Balance 1200 ml 950 ml Exam Constitutional: alert, oriented Respiratory: clear, biopsy site no bleeding, Diminished lung sounds on right lung field Cardiovascular: regular rate and rhythm Gastrointestinal: non-tender, soft Extremities: normal pulses Neurological: HALL SUPERVISOR II-XII intact, nl mental status, nl speech Results Result Diagram: 07/24/17 0457 07/24/17 0457 Results 24 hrs Laboratory Tests Test 07/25/17 05:09 Prothrombin Time 13.8 Prothrombin Time Ratio 1.1 INR International Normalized Ratio 1.06 Medications Medications Current Medications Acetaminophen (Tylenol Tab) 650 mg Q6H PRN PO PAIN LEVEL 1-3 OR FEVER; Start 07/23/17 at 19:00 Acetaminophen (Tylenol Supp) 650 mg Q6H PRN [place] PAIN LEVEL 1-3 OR FEVER; Start 07/23/17 at 19:00 Acetaminophen/ Hydrocodone Bitart ([place] (5/325)) 1 tab Q6H PRN PO MODERATE PAIN LEVEL 4-6; Start 07/23/17 at 19:00 Acetaminophen/ Hydrocodone Bitart ([place] (5/325)) 2 tab Q6H PRN PO SEVERE PAIN LEVEL 7-10 Last administered on 07/25/17t 12:35; Admin Dose 2 TAB; Start 07/23 at 19:00 Morphine Sulfate (morphine) 2 mg Q4H PRN IV SEVERE PAIN LEVEL 7-10 Last administered on 07/25/17 10:49; Admin Dose 2 MG; Start 07/23/17 at 19:00 Docusate Sodium (Colace) 100 mg Q12H PRN PO CONSTIPATION; Start 07/23/17 at 19 :00 Magnesium Hydroxide (Milk Of Mag) 30 ml DAILY PRN PO CONSTIPATION; Start 07/23 at 19:00 Bisacodyl (Dulcolax Supp) 10 mg DAILY PRN [place] CONSTIPATION; Start 07/23/17 at 19:00 Famotidine (Pepcid) 20 mg BID PO Last administered on 07/25/17 12:21; Admin Dose 20 MG; Start 07/24/17 at 21:00 Ondansetron HCl (Zofran Inj) 4 mg Q4H PRN IV NAUSEA AND/OR VOMITING Last administered on 07/25/17 05:13; Admin Dose 4 MG; Start 07/24/17 at 17:00 SAURAV BRYANT MD Jul 25, 2017 16:10
[2017-07-26] MEDS: morphine 2 MG INJ IV PRN ×4 (00:34→20:33)
[2017-07-26] MEDS: ONDANSETRON 4 MG INJ IV PRN ×4 (00:35→20:33)
[2017-07-26 02:00] VITALS: BP 109/57; RESP 19
[2017-07-26] MEDS: HYDROCODONE/APAP (5/325) TAB PO PRN ×2 (02:27→18:46)
[2017-07-26 06:28] LABS: BASOPHILS % 0.2 % (0.0-2.0); EOSINOPHILS # 0.6 10^3/ul (0.0-0.5); EOSINOPHILS % 4.7 % (0.0-7.0); HEMATOCRIT 33.9 % (37.0-47.0); HEMOGLOBIN 10.8 g/dl (12.0-16.0); LYMPHOCYTES # 2.4 10^3/ul (0.8-2.9); LYMPHOCYTES % 20.3 % (15.0-51.0); MEAN CORPUSCULAR HEMOGLOBIN 26.7 pg (29.0-33.0); MEAN CORPUSCULAR HGB CONC 31.9 g/dl (32.0-37.0); MEAN CORPUSCULAR VOLUME 83.9 fl (82.0-101.0); MEAN PLATELET VOLUME 9.6 fl (7.4-10.4); MONOCYTE # 0.9 10^3/ul (0.3-0.9); MONOCYTES % 7.6 % (0.0-11.0); NEUTROPHIL # 7.8 10^3/ul (1.6-7.5); NEUTROPHILS % 66.9 % (39.0-77.0); PLATELET COUNT 377 10^3/UL (140-415); RED BLOOD COUNT 4.04 10^6/ul (4.20-5.40); WHITE BLOOD COUNT 11.6 10^3/ul (4.8-10.8)
[2017-07-26 06:44] LABS: INR 1.09; PROTIME 14.1 Sec (12.2-14.2); PT RATIO 1.1
[2017-07-26 06:45] LABS: PARTIAL THROMBOPLASTIN TIME 36.1 Sec (25.0-35.0)
[2017-07-26 07:04] LABS: ALBUMIN 3.5 g/dl (3.3-4.9); ALBUMIN/GLOBULIN RATIO 0.85; CALCIUM 9.8 mg/dl (8.4-10.2); CREATININE 0.68 mg/dl (0.44-1.00); POTASSIUM 4.2 mmol/L (3.5-5.1); TOTAL PROTEIN 7.6 g/dl (6.1-8.1)
[2017-07-26 08:00] VITALS: BP 89/51; RESP 18
[2017-07-26] MEDS: FAMOTIDINE 20 MG TAB PO SCH ×2 (08:25→21:40)
[2017-07-26 09:00] VITALS: BP 105/58
--- NOTE | 2017-07-26 13:46 | PN ---
Date/Time of Note Date/Time of Note DATE: 07/26/17 TIME: 13:40 Assessment/Plan VTE Prophylaxis VTE Prophylaxis Intervention: SCD's Lines/Catheters IV Catheter Type (from [facility]): Saline Lock Urinary Cath still in place: No Assessment/Plan Chief Complaint/Hosp Course Impression and plan 1. Right lung tumor. Bus Matron following. s/p lung biopsy. follow up pathology. continue with analgesics as needed 2. Nicotine use. Cessation advised. 3. Anemia. Stable at present. Monitor H&H. Disposition and plan: Continue with analgesics as needed for pain. s/p biopsy. Follow-up on pathology. Continue in-house monitoring for now. Discussed plan of care with Dr. Baltazar Problems: Subjective 24 Hr Interval Summary Free Text/Dictation no reports of shortness of breath. still has some pressure on right side of the chest Exam/Review of Systems Vital Signs Vitals Vital Signs Date Time Temp Pulse Resp B/P Pulse Ox O2 Delivery O2 Flow Rate FiO2 07/26/17 09:00 105/58 07/26/17 08:00 97.9 75 18 96 07/25/17 12:20 Room Air Intake and Output 07/25/17 07/25/17 07/26/17 15:00 23:00 07:00 Intake Total 680 ml 720 ml Balance 680 ml 720 ml Exam Constitutional: alert, oriented Psych: nl mood/affect Head: normocephalic Respiratory: diminished breath sounds (right lung field ) Cardiovascular: regular rate and rhythm Gastrointestinal: non-tender, soft Musculoskeletal: nl extremities to inspection, nl gait and stance Extremities: normal pulses Neurological: HOTEL SUPERINTENDENT II-XII intact, nl mental status, nl speech Results Result Diagram: 07/26/17 0536 07/26/17 0536 Results 24 hrs Laboratory Tests Test 07/26/17 05:36 White Blood Count 11.6 H Red Blood Count 4.04 L Hemoglobin 10.8 L Hematocrit 33.9 L Mean Corpuscular Volume 83.9 Mean Corpuscular Hemoglobin 26.7 L Mean Corpuscular Hemoglobin Concent 31.9 L Red Cell Distribution Width 12.0 Platelet Count 377 Mean Platelet Volume 9.6 Neutrophils % 66.9 Lymphocytes % 20.3 Monocytes % 7.6 Eosinophils % 4.7 Basophils % 0.2 Nucleated Red Blood Cells % 0.0 Neutrophils # 7.8 H Lymphocytes # 2.4 Monocytes # 0.9 Eosinophils # 0.6 H Basophils # 0.0 Nucleated Red Blood Cells # 0.0 Prothrombin Time 14.1 Prothrombin Time Ratio 1.1 INR International Normalized Ratio 1.09 Activated Partial Thromboplast Time 36.1 H Sodium Level 132 L Potassium Level 4.2 Chloride Level 101 Carbon Dioxide Level 31 Anion Gap 4 L Blood Urea Nitrogen 7 Creatinine 0.68 Glucose Level 114 Calcium Level 9.8 Total Bilirubin 0.0 L Direct Bilirubin 0.00 Indirect Bilirubin 0.0 Aspartate Amino Transf (AST/SGOT) 28 Alanine Aminotransferase (ALT/SGPT) 31 Alkaline Phosphatase 122 H Total Protein 7.6 Albumin 3.5 Globulin 4.10 H Albumin/Globulin Ratio 0.85 Medications Medications Current Medications Acetaminophen (Tylenol Tab) 650 mg Q6H PRN PO PAIN LEVEL 1-3 OR FEVER; Start 07/23/17 at 19:00 Acetaminophen (Tylenol Supp) 650 mg Q6H PRN [place] PAIN LEVEL 1-3 OR FEVER; Start 07/23/17 at 19:00 Acetaminophen/ Hydrocodone Bitart ([place] (5/325)) 1 tab Q6H PRN PO MODERATE PAIN LEVEL 4-6; Start 07/23/17 at 19:00 Acetaminophen/ Hydrocodone Bitart ([place] (5/325)) 2 tab Q6H PRN PO SEVERE PAIN LEVEL 7-10 Last administered on 07/26/17 02:27; Admin Dose 2 TAB; Start 07/23 at 19:00 Morphine Sulfate (morphine) 2 mg Q4H PRN IV SEVERE PAIN LEVEL 7-10 Last administered on 07/26/17 09:00; Admin Dose 2 MG; Start 07/23/17 at 19:00 Docusate Sodium (Colace) 100 mg Q12H PRN PO CONSTIPATION Last administered on 07/25/17 19:51; Admin Dose 100 MG; Start 07/23/17 at 19:00 Magnesium Hydroxide (Milk Of Mag) 30 ml DAILY PRN PO CONSTIPATION Last administered on 07/26/17 08:38; Admin Dose 30 ML; Start 07/23/17 at 19:00 Bisacodyl (Dulcolax Supp) 10 mg DAILY PRN [place] CONSTIPATION; Start 07/23/17 at 19:00 Famotidine (Pepcid) 20 mg BID PO Last administered on 10/14/17at 08:25; Admin Dose 20 MG; Start 07/24/17 at 21:00 Ondansetron HCl (Zofran Inj) 4 mg Q4H PRN IV NAUSEA AND/OR VOMITING Last administered on 07/26/17t 09:05; Admin Dose 4 MG; Start 07/24/17 at 17:00 REANNA BARROSO Jul 26, 2017 13:46
[2017-07-26 13:55] VITALS: BP 106/52; PULSE 79; RESP 18
[2017-07-26 20:00] VITALS: BP 95/51; RESP 20
[2017-07-26 20:41] VITALS: BP 104/55; PULSE 76
[2017-07-27] MEDS: morphine 2 MG INJ IV PRN ×2 (00:39→10:05)
[2017-07-27] MEDS: ONDANSETRON 4 MG INJ IV PRN ×4 (00:39→21:10)
[2017-07-27 02:00] VITALS: BP 99/52; PULSE 82; RESP 20
[2017-07-27 04:08] VITALS: BP 100/59; PULSE 78
[2017-07-27] MEDS: HYDROCODONE/APAP (5/325) TAB PO PRN (04:10)
[2017-07-27 08:03] VITALS: BP 85/49; RESP 18
[2017-07-27] MEDS: FAMOTIDINE 20 MG TAB PO SCH ×2 (08:06→21:10)
[2017-07-27] MEDS ORDERED: morphine 4 MG/ML VIAL IV PRN (08:30)
[2017-07-27 10:12] VITALS: BP 102/66; PULSE 81
[2017-07-27] MEDS ORDERED: traZODone 50 MG TAB PO PRN (11:00)
--- NOTE | 2017-07-27 11:14 | CONS ---
Date/Time of Note Date/Time of Note DATE: 07/27/17 TIME: 11:04 Assessment/Plan Assessment/Plan Additional Assessment/Plan Lung mass Acute pain secondary to the above His pain is under good control of severe pain secondary to expanding lung mass by history Anemia of chronic disease Past medical history of smoking Plan With this degree of pain will begin her on a low dose of methadone 3 mg every 6 hours, patient is in agreement with the use of methadone. Change morphine to intravenous Dilaudid for breakthrough pain Bowel regimen Low-dose trazodone for sleep I have spoken to patient about her support system she has 3 sisters 2 are aware of her diagnosis. Consultation Date/Type/Reason Admit Date/Time Jul 23, 2017 at 10:52 Type of Consultation: Pain management Hx of Present Illness This is a 47-year-old female who was admitted to [facility] with pre-diagnosed right upper quadrant mass. I am asked see patient in pain management consultation. She has had increasing right upper quadrant chest and back pain since March pain is described as a throbbing pain with peaks and troughs graded 10/10. Pain is described also has an occasional lancinating discomfort same distribution. Denies itching mental cloudiness sweating fatigue associated with her pain. States that she was prescribed Langdon as an outpatient but was difficult to have pain medications refilled and she went for prolonged periods of time without any pain control meds. Patient has never had any altercation with law enforcement. She smokes but she denies any other recreational drug use, she denies any problems with substances in the past. She appears to be in good spirits and not impaired. She has not been asked for increasing doses or decreasing intervals of pain control medications. Nor is she insisting on certain pain control medications. Patient is not a victim of abuse. With current pain control medication she only has partial relief. As an outpatient the degree of her pain was interfering with her physical functioning, sleeping patterns and overall function. As an outpatient she was only taking 5-6 Langdon daily and still having significant discomfort. Psychological: nl mood/affect Past Medical History Medical History: no pertinent history Past Surgical History Past Surgical Hx: noncontributory Family History Significant Family History: cancer, diabetes Social History Alcohol Use: rarely Smoking Status: Former smoker Drug Use: none Exam/Review of Systems Vital Signs Vitals Vital Signs Date Time Temp Pulse Resp B/P Pulse Ox O2 Delivery O2 Flow Rate FiO2 07/27/17 10:12 81 102/66 07/27/17 08:03 98.1 18 96 07/27/17 02:00 Room Air Intake and Output 07/26/17 07/26/17 07/27/17 15:00 23:00 07:00 Intake Total 920 ml 820 ml Balance 920 ml 820 ml Exam Constitutional: alert, oriented, well developed, No distress, No frail, No non-verbal, No obese, No other Psych: nl mood/affect, no complaints ENMT: nl external ears & nose, nl lips & teeth, nl nasal mucosa & septum Neck: non-tender, supple Respiratory: diminished breath sounds, other (Diminished breath sounds right greater than left) Cardiovascular: nl pulses, regular rate and rhythm, No S3, No S4, No bruits, No diastolic murmur, No edema, No gallop, No irregular rhythm, No jugular venous distention (JVD), No murmurs/extra sounds, No other, No rub, No systolic murmur Gastrointestinal: No ascites, No bowel sounds, No distended, No firm, No hepatomegaly, No mass, No nl liver, spleen, No non-tender, No other, No rebound or guarding, No soft, No splenomegaly, No surgical scars, No tender Neurological: AGENCY SALES MANAGEMENT ASSISTANT II-XII intact, nl mental status, nl speech, nl strength, No DTR's symmetric, No confused, No focal weakness, No lethargic, No numbness , No other, No reflexes, No unresponsive Results Result Diagram: 07/26/17 0536 07/26/17 0536 Medications Medications Current Medications Acetaminophen (Tylenol Tab) 650 mg Q6H PRN PO PAIN LEVEL 1-3 OR FEVER; Start 07/23/17 at 19:00 Acetaminophen (Tylenol Supp) 650 mg Q6H PRN [place] PAIN LEVEL 1-3 OR FEVER; Start 07/23/17 at 19:00 Acetaminophen/ Hydrocodone Bitart ([place] (5/325)) 1 tab Q6H PRN PO MODERATE PAIN LEVEL 4-6; Start 07/23/17 at 19:00 Acetaminophen/ Hydrocodone Bitart ([place] (5/325)) 2 tab Q6H PRN PO SEVERE PAIN LEVEL 7-10 Last administered on 07/27/17t 04:10; Admin Dose 2 TAB; Start 07/23 at 19:00 Morphine Sulfate (morphine) 2 mg Q4H PRN IV SEVERE PAIN LEVEL 7-10 Last administered on 07/27/17 10:05; Admin Dose 2 MG; Start 07/23/17 at 19:00 Docusate Sodium (Colace) 100 mg Q12H PRN PO CONSTIPATION Last administered on 07/25/17 19:51; Admin Dose 100 MG; Start 07/23/17 at 19:00 Magnesium Hydroxide (Milk Of Mag) 30 ml DAILY PRN PO CONSTIPATION Last administered on 07/26/17 08:38; Admin Dose 30 ML; Start 07/23/17 at 19:00 Bisacodyl (Dulcolax Supp) 10 mg DAILY PRN [place] CONSTIPATION; Start 07/23/17 at 19:00 Famotidine (Pepcid) 20 mg BID PO Last administered on 07/27/17 08:06; Admin Dose 20 MG; Start 07/24/17 at 21:00 Ondansetron HCl (Zofran Inj) 4 mg Q4H PRN IV NAUSEA AND/OR VOMITING Last administered on 07/27/17 10:04; Admin Dose 4 MG; Start 07/24/17 at 17:00 Ketorolac Tromethamine (Toradol) 30 mg Q6H PRN IV PAIN; Start 07/27/17 at 08: 30; Stop 07/30/17 at 08:29 Morphine Sulfate (morphine) 4 mg Q4H PRN IV pain; Start 07/27/17 at 08:30 DA OSPINA Jul 27, 2017 11:14
[2017-07-27] MEDS: HYDROmorphONE 2 MG/ML SYG IV PRN ×2 (11:32→16:09)
--- NOTE | 2017-07-27 11:57 | PN ---
Date/Time of Note Date/Time of Note DATE: 07/27/17 TIME: 11:54 Assessment/Plan VTE Prophylaxis VTE Prophylaxis Intervention: SCD's Lines/Catheters [facility] Saline Lock Urinary Cath still in place: No Assessment/Plan Chief Complaint/Hosp Course Impression and plan 1. Right lung tumor. 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 s/p lung biopsy. awaiting pathology. continue with analgesics as needed 2. Nicotine use. Cessation advised. 3. Anemia. Stable at present. Monitor H&H. Disposition and plan: Still with reports of right-sided chest pain. Will get pain management physician to follow. Continue with analgesics for now. Continue supportive care. Discussed plan of care with Dr. Baltazar Problems: Subjective 24 Hr Interval Summary Free Text/Dictation still has some reports of right side chest pain Exam/Review of Systems Vital Signs Vitals Vital Signs Date Time Temp Pulse Resp B/P Pulse Ox O2 Delivery O2 Flow Rate FiO2 07/27/17 10:12 81 102/66 07/27/17 08:03 98.1 18 96 07/27/17 02:00 Room Air Intake and Output 07/26/17 07/26/17 07/27/17 15:00 23:00 07:00 Intake Total 920 ml 820 ml Balance 920 ml 820 ml Exam Constitutional: alert, oriented Psych: nl mood/affect Head: normocephalic Respiratory: diminished breath sounds (right lung field ) Cardiovascular: regular rate and rhythm Gastrointestinal: non-tender, soft Musculoskeletal: nl extremities to inspection, nl gait and stance Extremities: normal pulses Neurological: ASSEMBLER II-XII intact, nl mental status, nl speech Results Result Diagram: 07/26/1736 07/26/1736 Medications Medications Current Medications Acetaminophen (Tylenol Tab) 650 mg Q6H PRN PO PAIN LEVEL 1-3 OR FEVER; Start 07/23/17 at 19:00 Acetaminophen (Tylenol Supp) 650 mg Q6H PRN [place] PAIN LEVEL 1-3 OR FEVER; Start 07/23/17 at 19:00 Docusate Sodium (Colace) 100 mg Q12H PRN PO CONSTIPATION Last administered on 07/25/17 19:51; Admin Dose 100 MG; Start 07/23/17 at 19:00 Magnesium Hydroxide (Milk Of Mag) 30 ml DAILY PRN PO CONSTIPATION Last administered on 07/26/17 08:38; Admin Dose 30 ML; Start 07/23/17 at 19:00 Bisacodyl (Dulcolax Supp) 10 mg DAILY PRN [place] CONSTIPATION; Start 07/23/17 at 19:00 Famotidine (Pepcid) 20 mg BID PO Last administered on 07/27/17 08:06; Admin Dose 20 MG; Start 07/24/17 at 21:00 Ondansetron HCl (Zofran Inj) 4 mg Q4H PRN IV NAUSEA AND/OR VOMITING Last administered on 07/27/17 10:04; Admin Dose 4 MG; Start 07/24/17 at 17:00 Ketorolac Tromethamine (Toradol) 30 mg Q6H PRN IV PAIN; Start 07/27/17 at 08: 30; Stop 07/30/17 at 08:29 Hydromorphone HCl (Dilaudid) 2 mg Q4H PRN IV PAIN Last administered on 11:32; Admin Dose 2 MG; Start 07/27/17 at 11:28 Senna/Docusate Sodium (Senokot-S) 2 tab DAILY PO ; Start 07/28/17 at 11:29 Trazodone HCl (Desyrel) 50 mg HS PRN PO SLEEP; Start 07/27/17 at 11:00 Methadone HCl (Methadone Liq) 3 mg Q6 PO ; Start 07/27/17 at 12:00 REANNA BARROSO Jul 27, 2017 11:57
[2017-07-27] MEDS ORDERED: METHADONE 5 MG TAB PO SCH (12:00)
[2017-07-27] MEDS: METHADONE (1 MG/ML 5 ML PO UD SYG) PO SCH ×2 (12:30→17:05)
[2017-07-27 14:00] VITALS: BP 99/56; RESP 18
[2017-07-27 20:00] VITALS: BP 103/54; RESP 18
[2017-07-27] MEDS: HYDROmorphONE 1 MG/ML SYG IV PRN (21:10)
[2017-07-27] MEDS ORDERED: HYDROmorphONE 1 MG/ML SYG IV PRN (23:28)
[2017-07-28] MEDS: METHADONE (1 MG/ML 5 ML PO UD SYG) PO SCH ×4 (00:11→18:00)
[2017-07-28 02:00] VITALS: BP 108/56; RESP 18
[2017-07-28] MEDS: KETOROLAC 30 MG INJ IV PRN ×2 (02:37→13:22)
[2017-07-28 05:40] LABS: BASOPHILS % 0.3 % (0.0-2.0); EOSINOPHILS # 0.4 10^3/ul (0.0-0.5); EOSINOPHILS % 3.6 % (0.0-7.0); HEMATOCRIT 31.9 % (37.0-47.0); LYMPHOCYTES # 2.4 10^3/ul (0.8-2.9); LYMPHOCYTES % 20.7 % (15.0-51.0); MEAN CORPUSCULAR HEMOGLOBIN 26.4 pg (29.0-33.0); MEAN CORPUSCULAR HGB CONC 31.3 g/dl (32.0-37.0); MEAN CORPUSCULAR VOLUME 84.2 fl (82.0-101.0); MEAN PLATELET VOLUME 9.6 fl (7.4-10.4); MONOCYTE # 0.8 10^3/ul (0.3-0.9); MONOCYTES % 6.5 % (0.0-11.0); NEUTROPHIL # 7.9 10^3/ul (1.6-7.5); NEUTROPHILS % 68.6 % (39.0-77.0); PLATELET COUNT 393 10^3/UL (140-415); RED BLOOD COUNT 3.79 10^6/ul (4.20-5.40); RED CELL DISTRIBUTION WIDTH 12.4 % (11.5-14.5); WHITE BLOOD COUNT 11.5 10^3/ul (4.8-10.8)
[2017-07-28 06:00] LABS: CALCIUM 9.9 mg/dl (8.4-10.2); CREATININE 0.64 mg/dl (0.44-1.00); POTASSIUM 4.3 mmol/L (3.5-5.1)
[2017-07-28 08:16] VITALS: BP 101/55; RESP 18
[2017-07-28] MEDS: FAMOTIDINE 20 MG TAB PO SCH ×2 (09:06→20:05)
--- NOTE | 2017-07-28 11:21 | CONS ---
Date/Time of Note Date/Time of Note DATE: 07/28/17 TIME: 11:16 Assessment/Plan Assessment/Plan Chief Complaint/Hosp Course dictated # [id number] Problems: Additional Assessment/Plan Assessment recommendations; 1. Patient admitted with chest discomfort with a known history of right upper lobe lung mass. Status post CT-guided needle biopsy. Pathology results are still pending. Continue current supportive care. Further workup to be determined once biopsy results are obtained. Consultation Date/Type/Reason Admit Date/Time Jul 23, 2017 at 10:52 Initial Consult Date 07/23/17 Type of Consultation: Pulmonary 24 HR Interval Summary Free Text/Dictation Patient's condition is stable. Denies any chest pain, coughing, hemoptysis. General exam; young woman, awake alert, currently in no distress. Exam/Review of Systems Vital Signs Vitals Vital Signs Date Time Temp Pulse Resp B/P Pulse Ox O2 Delivery O2 Flow Rate FiO2 07/28/17 08:16 97.9 70 18 101/55 95 07/27/17 02:00 Room Air Intake and Output 07/27/17 07/27/17 07/28/17 15:00 23:00 07:00 Intake Total 1240 ml 750 ml Balance 1240 ml 750 ml Exam HEENT exam; supple neck, no JVD. No lymphadenopathy. Midline trachea. No thyromegaly. Pharynx is clear. Patient has fair dentition. Chest exam; diminished breath sounds right upper lobe. Rest of the lung hurt are clear. S1-S2 audible, no murmurs. Regular rhythm. Abdomen exam; soft, nontender. No organomegaly. Bowel sounds audible. Extremity exam; no peripheral edema. No clubbing. BATTERY ASSEMBLER DRY CELL exam; no focal deficit. Results Result Diagram: 07/28/17 0502 07/28/17 0502 Results 24 hrs Laboratory Tests Test 07/28/17 05:02 White Blood Count 11.5 H Red Blood Count 3.79 L Hemoglobin 10.0 L Hematocrit 31.9 L Mean Corpuscular Volume 84.2 Mean Corpuscular Hemoglobin 26.4 L Mean Corpuscular Hemoglobin Concent 31.3 L Red Cell Distribution Width 12.4 Platelet Count 393 Mean Platelet Volume 9.6 Neutrophils % 68.6 Lymphocytes % 20.7 Monocytes % 6.5 Eosinophils % 3.6 Basophils % 0.3 Nucleated Red Blood Cells % 0.0 Neutrophils # 7.9 H Lymphocytes # 2.4 Monocytes # 0.8 Eosinophils # 0.4 Basophils # 0.0 Nucleated Red Blood Cells # 0.0 Sodium Level 140 Potassium Level 4.3 Chloride Level 101 Carbon Dioxide Level 31 Anion Gap 12 Blood Urea Nitrogen 8 Creatinine 0.64 Glucose Level 105 Calcium Level 9.9 Medications Medications Current Medications Acetaminophen (Tylenol Tab) 650 mg Q6H PRN PO PAIN LEVEL 1-3 OR FEVER; Start 07/23/17 at 19:00 Acetaminophen (Tylenol Supp) 650 mg Q6H PRN [place] PAIN LEVEL 1-3 OR FEVER; Start 07/23/17 at 19:00 Docusate Sodium (Colace) 100 mg Q12H PRN PO CONSTIPATION Last administered on 07/25/17 19:51; Admin Dose 100 MG; Start 07/23/17 at 19:00 Magnesium Hydroxide (Milk Of Mag) 30 ml DAILY PRN PO CONSTIPATION Last administered on 07/26/17 08:38; Admin Dose 30 ML; Start 07/23/17 at 19:00 Bisacodyl (Dulcolax Supp) 10 mg DAILY PRN [place] CONSTIPATION; Start 07/23/17 at 19:00 Famotidine (Pepcid) 20 mg BID PO Last administered on 07/28/17 09:06; Admin Dose 20 MG; Start 07/24/17 at 21:00 Ondansetron HCl (Zofran Inj) 4 mg Q4H PRN IV NAUSEA AND/OR VOMITING Last administered on 07/27/17 21:10; Admin Dose 4 MG; Start 07/24/17 at 17:00 Ketorolac Tromethamine (Toradol) 30 mg Q6H PRN IV PAIN Last administered on 02:37; Admin Dose 30 MG; Start 07/27/17 at 08:30; Stop 07/30/17 at 08: 29 Senna/Docusate Sodium (Senokot-S) 2 tab DAILY PO ; Start 07/28/17 at 11:29 Trazodone HCl (Desyrel) 50 mg HS PRN PO SLEEP; Start 07/27/17 at 11:00 Methadone HCl (Methadone Liq) 3 mg Q6 PO Last administered on 07/28/17 00:11 ; Admin Dose 3 MG; Start 07/27/17 at 12:00 Hydromorphone HCl (Dilaudid) 1 mg Q4H PRN IV PAIN Last administered on t 21:10; Admin Dose 1 MG; Start 07/27/17 at 21:06 ERIK PATTEN Jul 28, 2017 11:21
[2017-07-28] MEDS: SENNA/DOCUSATE NA (8.6MG/50MG) TAB PO SCH (11:35)
--- NOTE | 2017-07-28 14:00 | PN ---
Date/Time of Note Date/Time of Note DATE: 07/28/17 TIME: 13:59 Assessment/Plan VTE Prophylaxis VTE Prophylaxis Intervention: LMWH Lines/Catheters IV [facility]from [facility] Saline Lock Urinary Cath still in place: No Assessment/Plan Chief Complaint/Hosp Course 1. Large right lung mass. Status post needle biopsy. Awaiting pathology results. 2. Right chest wall pain. Most probably secondary to underlying right lung mass. The patient on analgesics as per the pain management team. 3. Nicotine use. Cessation advised. 4. Anemia. Normocytic and hypochromic. Probably anemia chronic disease. Will obtain an iron panel. 5. Fluids, electrolytes, and nutrition. Regular diet. 6. DVT prophylaxis. Subcutaneous Lovenox. 7. Plan. Await lung biopsy results. Case discussed with Dr. Monk. Problems: Subjective 24 Hr Interval Summary Free Text/Dictation Right chest wall pain well controlled. Exam/Review of Systems Vital Signs Vitals Vital Signs Date Time Temp Pulse Resp B/P Pulse Ox O2 Delivery O2 Flow Rate FiO2 07/28/17 08:16 97.9 70 18 101/55 95 07/27/17 02:00 Room Air Intake and Output 07/27/17 07/27/17 07/28/17 15:00 23:00 07:00 Intake Total 1240 ml 750 ml Balance 1240 ml 750 ml Exam General: Adequately build 47 year-old female lying in bed in no apparent distress. HEENT: Normocephalic, atraumatic. Eyes: Anicteric sclerae, conjunctivae clear. ENT: Nasal septum midline, oral mucosa moist. Neck supple, no JVD noticed. Respiratory: Diminished breath sounds. No use of accessory muscles of respiration. No adventitious breath sounds. Cardiovascular: S1, S2 heard. No murmurs or gallops. Abdomen: Soft, nontender, and nondistended. Bowel sounds positive in all 4 quadrants. Genitourinary: Deferred. Extremities: No cyanosis, no clubbing, no edema. Peripheral pulses palpable. Neurologic: Cranial nerves II through XII grossly intact. The patient is awake, alert, and oriented. Skin: Normal skin turgor. No skin rashes. Results Result Diagram: 07/28/17 0502 07/28/17 0502 Results 24 hrs Laboratory Tests Test 07/28/17 05:02 White Blood Count 11.5 H Red Blood Count 3.79 L Hemoglobin 10.0 L Hematocrit 31.9 L Mean Corpuscular Volume 84.2 Mean Corpuscular Hemoglobin 26.4 L Mean Corpuscular Hemoglobin Concent 31.3 L Red Cell Distribution Width 12.4 Platelet Count 393 Mean Platelet Volume 9.6 Neutrophils % 68.6 Lymphocytes % 20.7 Monocytes % 6.5 Eosinophils % 3.6 Basophils % 0.3 Nucleated Red Blood Cells % 0.0 Neutrophils # 7.9 H Lymphocytes # 2.4 Monocytes # 0.8 Eosinophils # 0.4 Basophils # 0.0 Nucleated Red Blood Cells # 0.0 Sodium Level 140 Potassium Level 4.3 Chloride Level 101 Carbon Dioxide Level 31 Anion Gap 12 Blood Urea Nitrogen 8 Creatinine 0.64 Glucose Level 105 Calcium Level 9.9 Medications Medications Current Medications Acetaminophen (Tylenol Tab) 650 mg Q6H PRN PO PAIN LEVEL 1-3 OR FEVER; Start 07/23/17 at 19:00 Acetaminophen (Tylenol Supp) 650 mg Q6H PRN [place] PAIN LEVEL 1-3 OR FEVER; Start 07/23/17 at 19:00 Docusate Sodium (Colace) 100 mg Q12H PRN PO CONSTIPATION Last administered on 07/25/17 19:51; Admin Dose 100 MG; Start 07/23/17 at 19:00 Magnesium Hydroxide (Milk Of Mag) 30 ml DAILY PRN PO CONSTIPATION Last administered on 07/26/17 08:38; Admin Dose 30 ML; Start 07/23/17 at 19:00 Bisacodyl (Dulcolax Supp) 10 mg DAILY PRN [place] CONSTIPATION; Start 07/23/17 at 19:00 Famotidine (Pepcid) 20 mg BID PO Last administered on 07/28/17 09:06; Admin Dose 20 MG; Start 07/24/17 at 21:00 Ondansetron HCl (Zofran Inj) 4 mg Q4H PRN IV NAUSEA AND/OR VOMITING Last administered on 07/27/17 21:10; Admin Dose 4 MG; Start 07/24/17 at 17:00 Ketorolac Tromethamine (Toradol) 30 mg Q6H PRN IV PAIN Last administered on 13:22; Admin Dose 30 MG; Start 07/27/17 at 08:30; Stop 07/30/17 at 08: 29 Senna/Docusate Sodium (Senokot-S) 2 tab DAILY PO Last administered on 11:35; Admin Dose 2 TAB; Start 07/28/17 at 11:29 Trazodone HCl (Desyrel) 50 mg HS PRN PO SLEEP; Start 07/27/17 at 11:00 Methadone HCl (Methadone Liq) 3 mg Q6 PO Last administered on 07/28/17 11:35 ; Admin Dose 3 MG; Start 07/27/17 at 12:00 Hydromorphone HCl (Dilaudid) 1 mg Q4H PRN IV PAIN Last administered on 21:10; Admin Dose 1 MG; Start 07/27/17 at 21:06 NINFA GOODMAN NP Jul 28, 2017 14:00
[2017-07-28 14:15] VITALS: BP 94/44; RESP 18
[2017-07-28] MEDS: ONDANSETRON 4 MG INJ IV PRN ×2 (16:00→20:10)
[2017-07-28] MEDS: HYDROmorphONE 1 MG/ML SYG IV PRN ×2 (16:00→20:10)
[2017-07-28 16:39] LABS: IRON 36 ug/dl (35-150)
[2017-07-28 16:48] LABS: TOTAL IRON BINDING CAPACITY 261 ug/dl (241-421)
[2017-07-28 19:52] VITALS: BP 99/55; RESP 16
[2017-07-29] MEDS: METHADONE (1 MG/ML 5 ML PO UD SYG) PO SCH ×4 (00:13→18:08)
[2017-07-29] MEDS: HYDROmorphONE 1 MG/ML SYG IV PRN ×5 (02:06→23:12)
[2017-07-29 02:13] VITALS: BP 91/52; RESP 16
[2017-07-29 06:04] VITALS: BP 101/52; PULSE 71
[2017-07-29] MEDS: ONDANSETRON 4 MG INJ IV PRN ×4 (07:27→22:40)
--- NOTE | 2017-07-29 07:31 | PN ---
Date/Time of Note Date/Time of Note DATE: 07/29/17 TIME: 07:30 Assessment/Plan VTE Prophylaxis VTE Prophylaxis Intervention: LMWH Lines/Catheters IV Catheter Type (from [facility]): Saline Lock Urinary Cath still in place: No Assessment/Plan Chief Complaint/Hosp Course 1. Large right lung mass. Status post needle biopsy. Awaiting pathology results. 2. Right chest wall pain. Most probably secondary to underlying right lung mass. The patient on analgesics as per the pain management team. 3. Nicotine use. Cessation advised. 4. Anemia. Normocytic and hypochromic. Probably anemia chronic disease. 5. Fluids, electrolytes, and nutrition. Regular diet. 6. DVT prophylaxis. Subcutaneous Lovenox. 7. Plan. Await lung biopsy results. Case discussed with Dr. Monk. Problems: Subjective 24 Hr Interval Summary Free Text/Dictation No changes in status. Exam/Review of Systems Vital Signs Vitals Vital Signs Date Time Temp Pulse Resp B/P Pulse Ox O2 Delivery O2 Flow Rate FiO2 07/29/17 06:04 71 101/52 07/29/17 02:13 98.6 16 98 07/27/17 02:00 Room Air Intake and Output 07/28/17 07/28/17 07/29/17 14:59 22:59 06:59 Intake Total 1320 ml 460 ml Balance 1320 ml 460 ml Exam General: Adequately build 47 year-old female lying in bed in no apparent distress. HEENT: Normocephalic, atraumatic. Eyes: Anicteric sclerae, conjunctivae clear. ENT: Nasal septum midline, oral mucosa moist. Neck supple, no JVD noticed. Respiratory: Diminished breath sounds. No use of accessory muscles of respiration. No adventitious breath sounds. Cardiovascular: S1, S2 heard. No murmurs or gallops. Abdomen: Soft, nontender, and nondistended. Bowel sounds positive in all 4 quadrants. Genitourinary: Deferred. Extremities: No cyanosis, no clubbing, no edema. Peripheral pulses palpable. Neurologic: Cranial nerves II through XII grossly intact. The patient is awake, alert, and oriented. Skin: Normal skin turgor. No skin rashes. Results Result Diagram: 07/28/17 0502 07/28/17 0502 Results 24 hrs Laboratory Tests Test 07/28/17 15:49 Iron Level 36 Total Iron Binding Capacity 261 Percent Iron Saturation 14 L Ferritin 103.0 Medications Medications Current Medications Acetaminophen (Tylenol Tab) 650 mg Q6H PRN PO PAIN LEVEL 1-3 OR FEVER; Start 07/23/17 at 19:00 Acetaminophen (Tylenol Supp) 650 mg Q6H PRN [place] PAIN LEVEL 1-3 OR FEVER; Start 07/23/17 at 19:00 Docusate Sodium (Colace) 100 mg Q12H PRN PO CONSTIPATION Last administered on 07/25/17 19:51; Admin Dose 100 MG; Start 07/23/17 at 19:00 Magnesium Hydroxide (Milk Of Mag) 30 ml DAILY PRN PO CONSTIPATION Last administered on 07/26/17 08:38; Admin Dose 30 ML; Start 07/23/17 at 19:00 Bisacodyl (Dulcolax Supp) 10 mg DAILY PRN [place] CONSTIPATION; Start 07/23/17 at 19:00 Famotidine (Pepcid) 20 mg BID PO Last administered on 07/28/17 20:05; Admin Dose 20 MG; Start 07/24/17 at 21:00 Ondansetron HCl (Zofran Inj) 4 mg Q4H PRN IV NAUSEA AND/OR VOMITING Last administered on 07/29/17 07:27; Admin Dose 4 MG; Start 07/24/17 at 17:00 Ketorolac Tromethamine (Toradol) 30 mg Q6H PRN IV PAIN Last administered on 13:22; Admin Dose 30 MG; Start 07/27/17 at 08:30; Stop 07/30/17 at 08: 29 Senna/Docusate Sodium (Senokot-S) 2 tab DAILY PO Last administered on 11:35; Admin Dose 2 TAB; Start 07/28/17 at 11:29 Trazodone HCl (Desyrel) 50 mg HS PRN PO SLEEP; Start 07/27/17 at 11:00 Methadone HCl (Methadone Liq) 3 mg Q6 PO Last administered on 07/29/17 05:58 ; Admin Dose 3 MG; Start 07/27/17 at 12:00 Hydromorphone HCl (Dilaudid) 1 mg Q4H PRN IV PAIN Last administered on 07:13; Admin Dose 1 MG; Start 07/27/17 at 21:06 NINFA GOODMAN NP Jul 29, 2017 07:31
[2017-07-29 07:52] VITALS: BP 94/55; RESP 20
[2017-07-29] MEDS: FAMOTIDINE 20 MG TAB PO SCH ×2 (09:35→21:12)
[2017-07-29] MEDS: SENNA/DOCUSATE NA (8.6MG/50MG) TAB PO SCH (09:35)
--- NOTE | 2017-07-29 12:32 | CONS ---
Date/Time of Note Date/Time of Note DATE: 07/29/17 TIME: 12:31 Assessment/Plan Assessment/Plan Chief Complaint/Hosp Course dictated # [id number] Problems: Additional Assessment/Plan Assessment and recommendations; 1. Patient admitted with chest discomfort due to right upper lobe lung mass which was under workup on outpatient basis. Status post in-hospital biopsy. Continue current treatment. Awaiting biopsy results. Consultation Date/Type/Reason Admit Date/Time Jul 23, 2017 at 10:52 Initial Consult Date 07/23/17 Type of Consultation: Pulmonary 24 HR Interval Summary Free Text/Dictation Patient's condition remains stable. Complains of mild chest discomfort. Which is most involving right upper chest. Denies any coughing, wheezing. General exam; young woman, awake alert, currently in no distress. Exam/Review of Systems Vital Signs Vitals Vital Signs Date Time Temp Pulse Resp B/P Pulse Ox O2 Delivery O2 Flow Rate FiO2 07/29/17 07:52 98.1 75 20 94/55 98 07/27/17 02:00 Room Air Intake and Output 07/28/17 07/28/17 07/29/17 15:00 23:00 07:00 Intake Total 1320 ml 460 ml Balance 1320 ml 460 ml Exam HEENT exam; supple neck, no JVD. No lymphadenopathy. Midline trachea. No thyromegaly. Patient has fair dentition. Chest exam; minimally decreased breath sounds right upper lobe. Rest of the lung hurt are clear. S1-S2 audible, no murmurs. Regular rhythm. Abdomen exam; soft, nontender. No organomegaly. Bowel sounds audible. Extremity exam; no peripheral edema. No clubbing. 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 Results Result Diagram: 07/28/17 0502 07/28/17 0502 Results 24 hrs Laboratory Tests Test 07/28/17 15:49 Iron Level 36 Total Iron Binding Capacity 261 Percent Iron Saturation 14 L Ferritin 103.0 Medications Medications Current Medications Acetaminophen (Tylenol Tab) 650 mg Q6H PRN PO PAIN LEVEL 1-3 OR FEVER; Start 07/23/17 at 19:00 Acetaminophen (Tylenol Supp) 650 mg Q6H PRN [place] PAIN LEVEL 1-3 OR FEVER; Start 07/23/17 at 19:00 Docusate Sodium (Colace) 100 mg Q12H PRN PO CONSTIPATION Last administered on 07/25/17 19:51; Admin Dose 100 MG; Start 07/23/17 at 19:00 Magnesium Hydroxide (Milk Of Mag) 30 ml DAILY PRN PO CONSTIPATION Last administered on 07/26/17 08:38; Admin Dose 30 ML; Start 07/23/17 at 19:00 Bisacodyl (Dulcolax Supp) 10 mg DAILY PRN [place] CONSTIPATION; Start 07/23/17 at 19:00 Famotidine (Pepcid) 20 mg BID PO Last administered on 07/29/17 09:35; Admin Dose 20 MG; Start 07/24/17 at 21:00 Ondansetron HCl (Zofran Inj) 4 mg Q4H PRN IV NAUSEA AND/OR VOMITING Last administered on 07/29/17 07:27; Admin Dose 4 MG; Start 07/24/17 at 17:00 Ketorolac Tromethamine (Toradol) 30 mg Q6H PRN IV PAIN Last administered on 13:22; Admin Dose 30 MG; Start 07/27/17 at 08:30; Stop 07/30/17 at 08: 29 Senna/Docusate Sodium (Senokot-S) 2 tab DAILY PO Last administered on 09:35; Admin Dose 2 TAB; Start 07/28/17 at 11:29 Trazodone HCl (Desyrel) 50 mg HS PRN PO SLEEP; Start 07/27/17 at 11:00 Methadone HCl (Methadone Liq) 3 mg Q6 PO Last administered on 07/29/17 05:58 ; Admin Dose 3 MG; Start 07/27/17 at 12:00 Hydromorphone HCl (Dilaudid) 1 mg Q4H PRN IV PAIN Last administered on 07:13; Admin Dose 1 MG; Start 07/27/17 at 21:06 ERIK PATTEN Jul 29, 2017 12:32
[2017-07-29 13:53] VITALS: BP 84/48; RESP 18
--- NOTE | 2017-07-29 17:23 | QN ---
Documentation Comment Covering physician note called by path lab pt's lung mass poorly differentiated adenoCa, lung primary, special stains pending I notified the SPORTS COMPLEX ATTENDANT overseeing the patient's care and the oncologist seeing panel patients this week UMU VALVERDE MD Jul 29, 2017 17:23
[2017-07-29 20:35] VITALS: BP 91/50; RESP 18
--- NOTE | 2017-07-29 20:42 | CONS ---
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 this has been discussed with radiation oncologist Dr. Martinez who is in agreement with this plan. 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 Pt was transferred to [facility] from outside hospital ([place]) due to insurance issue due to reports of increased right- sided chest pain that started 1 day prior to admission. -03/26/17 CT scan imaging done at [place] demonstrated 7.5 x 6 x 8 cm anterior right upper lobe solid enhancing lung mass with mediastinal and right hilar lymphadenopathy.Also seen was copd and emphysematous changes -07/25/17 On this admission pt had a CT guided lung bx of this lung mass.Preliminary pathology is consistent with poorly differentiated adenocarcinoma. We have been consulted for further workup Psychological: nl mood/affect, no complaints Past Medical History Medical History: no pertinent history Past Surgical History Past Surgical Hx: noncontributory Family History Significant Family History: other (mother with colon cancer) Social History Alcohol Use: rarely Smoking Status: Former smoker (Quit smoking in March 2017 however reports a 25+ year history of cigarette smoking 1 pack every 2-3 days) Drug Use: none Exam/Review of Systems Vital Signs Vitals Vital Signs Date Time Temp Pulse Resp B/P Pulse Ox O2 Delivery O2 Flow Rate FiO2 07/29/17 13:53 97.9 71 18 84/48 96 07/27/17 02:00 Room Air Intake and Output 07/28/17 07/28/17 07/29/17 15:00 23:00 07:00 Intake Total 1320 ml 460 ml Balance 1320 ml 460 ml Exam Constitutional: alert, oriented Psych: no complaints Head: normocephalic Eyes: nl conjunctiva ENMT: nl external ears & nose Neck: non-tender, supple Respiratory: diminished breath sounds (in right lung) Cardiovascular: nl pulses, regular rate and rhythm Gastrointestinal: soft Musculoskeletal: nl extremities to inspection, nl gait and stance Extremities: normal pulses Results Result Diagram: 07/28/17 0502 07/28/17 0502 Medications Medications Current Medications Acetaminophen (Tylenol Tab) 650 mg Q6H PRN PO PAIN LEVEL 1-3 OR FEVER; Start 07/23/17 at 19:00 Acetaminophen (Tylenol Supp) 650 mg Q6H PRN [place] PAIN LEVEL 1-3 OR FEVER; Start 07/23/17 at 19:00 Docusate Sodium (Colace) 100 mg Q12H PRN PO CONSTIPATION Last administered on 07/25/17 19:51; Admin Dose 100 MG; Start 07/23/17 at 19:00 Magnesium Hydroxide (Milk Of Mag) 30 ml DAILY PRN PO CONSTIPATION Last administered on 07/26/17 08:38; Admin Dose 30 ML; Start 07/23/17 at 19:00 Bisacodyl (Dulcolax Supp) 10 mg DAILY PRN [place] CONSTIPATION; Start 07/23/17 at 19:00 Famotidine (Pepcid) 20 mg BID PO Last administered on 07/29/17 09:35; Admin Dose 20 MG; Start 07/24/17 at 21:00 Ondansetron HCl (Zofran Inj) 4 mg Q4H PRN IV NAUSEA AND/OR VOMITING Last administered on 07/29/17 18:08; Admin Dose 4 MG; Start 07/24/17 at 17:00 Ketorolac Tromethamine (Toradol) 30 mg Q6H PRN IV PAIN Last administered on 13:22; Admin Dose 30 MG; Start 07/27/17 at 08:30; Stop 07/30/17 at 08: 29 Senna/Docusate Sodium (Senokot-S) 2 tab DAILY PO Last administered on 09:35; Admin Dose 2 TAB; Start 07/28/17 at 11:29 Trazodone HCl (Desyrel) 50 mg HS PRN PO SLEEP; Start 07/27/17 at 11:00 Methadone HCl (Methadone Liq) 3 mg Q6 PO Last administered on 07/29/17 18:08 ; Admin Dose 3 MG; Start 07/27/17 at 12:00 Hydromorphone HCl (Dilaudid) 1 mg Q4H PRN IV PAIN Last administered on 19:11; Admin Dose 1 MG; Start 07/27/17 at 21:06 ROYAL HERNANDEZ M.D. Jul 29, 2017 20:22
[2017-07-29 20:54] LABS: RETICULOCYTE COUNT % 1.1 % (0.5-1.5)
[2017-07-29] MEDS ORDERED: BARIUM SULF 2% 450 ML BTL (BERRY SMOOTHIE) PO SCH (21:00)
[2017-07-29 22:24] LABS: FOLATE 11.2 ng/ml (2.8-20.0)
[2017-07-29] MEDS: POLYSACCHARIDE IRON COMPLEX CAP PO SCH (22:39)
[2017-07-30] MEDS: METHADONE (1 MG/ML 5 ML PO UD SYG) PO SCH ×4 (00:17→18:15)
[2017-07-30 02:17] VITALS: BP 90/51; RESP 18
[2017-07-30] MEDS: HYDROmorphONE 1 MG/ML SYG IV PRN ×3 (03:40→14:18)
[2017-07-30] MEDS: ONDANSETRON 4 MG INJ IV PRN ×4 (03:43→20:40)
[2017-07-30 07:44] VITALS: BP 112/66; RESP 18
[2017-07-30] MEDS: FAMOTIDINE 20 MG TAB PO SCH ×2 (08:14→20:38)
[2017-07-30] MEDS: POLYSACCHARIDE IRON COMPLEX CAP PO SCH ×2 (08:15→20:38)
[2017-07-30] MEDS: SENNA/DOCUSATE NA (8.6MG/50MG) TAB PO SCH (08:15)
[2017-07-30] MEDS: NACL 0.9% 3 ML SYG IV SCH ×2 (08:17→13:12)
[2017-07-30] MEDS ORDERED: SOD CHLORIDE 0.9% 100 ML ONE (09:23)
[2017-07-30] MEDS ORDERED: IOHEXOL 300MG/ML 150 ML BTL ONE (09:23)
--- NOTE | 2017-07-30 11:58 | PN ---
Date/Time of Note Date/Time of Note DATE: 07/30/17 TIME: 11:55 Assessment/Plan VTE Prophylaxis VTE Prophylaxis Intervention: LMWH Lines/Catheters IV [facility]from [facility] Saline Lock Urinary Cath still in place: No Assessment/Plan Chief Complaint/Hosp Course 1. Large right lung mass. Status post needle biopsy. Pathology positive for poorly differentiated adenocarcinoma. Oncology evaluation ongoing. 2. Right chest wall pain. Most probably secondary to underlying right lung mass. The patient on analgesics as per the pain management team. 3. Nicotine use. Cessation advised. 4. Anemia. Normocytic and hypochromic. Probably anemia chronic disease. 5. Fluids, electrolytes, and nutrition. Regular diet. 6. DVT prophylaxis. Subcutaneous Lovenox. 7. Plan. Await further recommendations from Oncology. Case discussed with Dr. Monk. Problems: Subjective 24 Hr Interval Summary Free Text/Dictation Continues to have right sided chest wall pain. Exam/Review of Systems Vital Signs Vitals Vital Signs Date Time Temp Pulse Resp B/P Pulse Ox O2 Delivery O2 Flow Rate FiO2 07/30/17 07:44 98.5 76 18 112/66 97 07/27/17 02:00 Room Air Intake and Output 07/29/17 07/29/17 07/30/17 14:59 22:59 06:59 Intake Total 1200 ml 500 ml Balance 1200 ml 500 ml Exam General: Adequately build 47 year-old female lying in bed in no apparent distress. HEENT: Normocephalic, atraumatic. Eyes: Anicteric sclerae, conjunctivae clear. ENT: Nasal septum midline, oral mucosa moist. Neck supple, no JVD noticed. Respiratory: Diminished breath sounds. No use of accessory muscles of respiration. No adventitious breath sounds. Cardiovascular: S1, S2 heard. No murmurs or gallops. Abdomen: Soft, nontender, and nondistended. Bowel sounds positive in all 4 quadrants. Genitourinary: Deferred. Extremities: No cyanosis, no clubbing, no edema. Peripheral pulses palpable. Neurologic: Cranial nerves II through XII grossly intact. The patient is awake, alert, and oriented. Skin: Normal skin turgor. No skin rashes. Results Result Diagram: 07/28/17 0502 07/28/17 0502 Results 24 hrs Laboratory Tests Test 07/29/17 20:46 Absolute Reticulocyte Count 0.042 Percent Reticulocyte Count 1.1 Lactate Dehydrogenase 527 Vitamin B12 Level 610 Folate 11.2 Medications Medications Current Medications Acetaminophen (Tylenol Tab) 650 mg Q6H PRN PO PAIN LEVEL 1-3 OR FEVER; Start 07/23/17 at 19:00 Acetaminophen (Tylenol Supp) 650 mg Q6H PRN [place] PAIN LEVEL 1-3 OR FEVER; Start 07/23/17 at 19:00 Docusate Sodium (Colace) 100 mg Q12H PRN PO CONSTIPATION Last administered on 07/25/17 19:51; Admin Dose 100 MG; Start 07/23/17 at 19:00 Magnesium Hydroxide (Milk Of Mag) 30 ml DAILY PRN PO CONSTIPATION Last administered on 07/26/17 08:38; Admin Dose 30 ML; Start 07/23/17 at 19:00 Bisacodyl (Dulcolax Supp) 10 mg DAILY PRN [place] CONSTIPATION; Start 07/23/17 at 19:00 Famotidine (Pepcid) 20 mg BID PO Last administered on 07/30/17 08:14; Admin Dose 20 MG; Start 07/24/17 at 21:00 Ondansetron HCl (Zofran Inj) 4 mg Q4H PRN IV NAUSEA AND/OR VOMITING Last administered on 07/30/17 08:15; Admin Dose 4 MG; Start 07/24/17 at 17:00 Senna/Docusate Sodium (Senokot-S) 2 tab DAILY PO Last administered on 08:15; Admin Dose 2 TAB; Start 07/28/17 at 11:29 Trazodone HCl (Desyrel) 50 mg HS PRN PO SLEEP; Start 07/27/17 at 11:00 Methadone HCl (Methadone Liq) 3 mg Q6 PO Last administered on 07/30/17 11:35 ; Admin Dose 3 MG; Start 07/27/17 at 12:00 Hydromorphone HCl (Dilaudid) 1 mg Q4H PRN IV PAIN Last administered on 08:15; Admin Dose 1 MG; Start 07/27/17 at 21:06 Polysaccharide Iron Complex (Niferex-150) 1 cap BID PO Last administered on 08:15; Admin Dose 1 CAP; Start 07/29/17 at 21:00 NINFA GOODMAN NP Jul 30, 2017 11:57
--- NOTE | 2017-07-30 12:06 | RADRPT ---
PROCEDURE: CT Chest with contrast. CLINICAL INDICATION: Lung mass. TECHNIQUE: CT scan of the chest with contrast was performed following the uncomplicated intravenou s administration of 100 cc of Isovue 300. Coronal and sagittal reformatted images were obtained fro m the axial source images. Images were reviewed on a high-resolution PACS workstation. CTDIvol (mGy) : 7.61; Total Exam DLP (mGy-cm): 566.09. One or more of the following dose reduction techniques were utilized: - Automated exposure control. - Adjustment of the mA and/or kV according to patient size. - Use of iterative reconstruction technique. COMPARISON: CT lung biopsy 07/25/2017. CTA chest 06/23/2017. PET CT 06/19/2017. FINDINGS: Limited imaging of the lower neck is unremarkable. The heart is not enlarged. There is no pericardial effusion. There is a large 11.4 cm heterogeneousl y enhancing mass of the anteromedial right upper lobe with broad-based contact of the mediastinal ma rgin. Numerous small and enlarged lymph nodes are seen throughout the mediastinum and within the rig ht hilum. Precarinal lymph adenopathy is present measuring 12 mm in short axis. The thoracic aorta i s normal in caliber. The pulmonary arteries are not enlarged. Scattered small cysts are seen through out the upper mid portions of the lungs. The tracheobronchial tree is normal in caliber. Mild basila r atelectasis versus scarring is observed. Mild nonspecific nodularity along the major fissure withi n the left upper lung is observed and unchanged. Limited imaging of the upper abdomen is unremarkable. Scattered few tiny nonspecific densely sclerotic foci are seen within the visualized axial and appen dicular skeleton. Imaging appearance is favorable for tiny bone islands. Body wall soft tissues are unremarkable. IMPRESSION: Large heterogeneously enhancing mass of the anteromedial right upper lobe suggestive of carcinoma. C orrelate with recent biopsy results. Mediastinal and right hilar lymphadenopathy. RPTAT: [id number] .Estefania Sahu MD, Date Time Electronically viewed and signed by .Estefania Sahu MD, on 07/30/2017 12:06 .T/
--- NOTE | 2017-07-30 12:14 | RADRPT ---
PROCEDURE: CT Abdomen and Pelvis with contrast. CLINICAL INDICATION: Lung mass. TECHNIQUE: Multiple contiguous axial CT images of the abdomen and pelvis were obtained following t he administration of 100 cc of Isovue 300. Coronal and sagittal reconstructions were also performed . CTDIvol (mGy): 7.61; Total Exam DLP (mGy-cm): 566.09. One or more of the following dose reduction techniques were utilized: - Automated exposure control. - Adjustment of the mA and/or kV according to patient size. - Use of iterative reconstruction technique. COMPARISON: CT lung biopsy 07/25/2017. PET CT 06/19/2017. FINDINGS: Limited imaging of the lower thorax demonstrates scattered basilar atelectatic changes. The liver and spleen are homogeneous in enhancement. The gallbladder, pancreas and adrenal glands a re unremarkable. The kidneys are symmetric in size and enhancement. There is no hydronephrosis or abnormal perinephr ic inflammation. There are no ureteral stones. The abdominal aorta is normal in caliber. There is no periaortic / retroperitoneal lymphadenopathy. The stomach and small and large intestines are unremarkable. The appendix is normal. There are no focal inflammatory changes of the mesentery. There is no mesenteric lymphadenopathy. There is no a scites. The bladder, uterus and adnexa are unremarkable aside from a collapsed follicle within the right ova ry. Trace free pelvic fluid is present. There is no pelvic sidewall or inguinal lymphadenopathy. Very mild degenerative changes are scattered throughout the spine. Scattered few tiny densely scler otic foci are seen within the axial and appendicular skeleton, favorable for a tiny bone islands. Th ere is no concerning osseous lesion. Body wall soft tissues are unremarkable. IMPRESSION: No evidence of abdominopelvic metastatic disease. No evidence of abdominopelvic mass, lymphadenopathy or acute inflammatory pathology. RPTAT: AAQQ .Estefania Sahu MD, MD Date Time Electronically viewed and signed by .Estefania Sahu MD, on 07/30/2017 12:13 .T/
--- NOTE | 2017-07-30 12:42 | CONS ---
Date/Time of Note Date/Time of Note DATE: 07/30/17 TIME: 12:40 Assessment/Plan Assessment/Plan Chief Complaint/Hosp Course dictated # [id number] Problems: Consultation Date/Type/Reason Admit Date/Time Jul 23, 2017 at 10:52 Initial Consult Date 07/23/17 Type of Consultation: Pulmonary Referring Provider: UMU VALVERDE MD 24 HR Interval Summary Free Text/Dictation Patient's condition is stable. Denies any shortness of breath. Complains of mild right upper lobe chest discomfort. Denies any hemoptysis. General exam; young female, awake alert, currently in no distress. HEENT exam; supple neck, no JVD. No lymphadenopathy. Midline trachea. No thyromegaly. Patient has fair dentition. Chest exam; clear to auscultation. With minimally decreased breath sounds right upper lobe. S1-S2 audible, no murmurs. Abdomen exam; soft, nontender. No organomegaly. Bowel sounds audible. Extremity exam; no peripheral edema. No clubbing. 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 Assessment and recommendations; 1. Patient admitted with workup for right upper lobe mass which is showing poorly differentiated non-small cell cancer. The tumor is nonresectable and the patient could potentially benefit from radiation and chemotherapy. Oncology consult is pending. MRI of the brain ordered by her primary care physician to rule out distant metastases. Exam/Review of Systems Vital Signs Vitals Vital Signs Date Time Temp Pulse Resp B/P Pulse Ox O2 Delivery O2 Flow Rate FiO2 07/30/17 07:44 98.5 76 18 112/66 97 07/27/17 02:00 Room Air Intake and Output 07/29/17 07/29/17 07/30/17 15:00 23:00 07:00 Intake Total 1200 ml 500 ml Balance 1200 ml 500 ml Results Result Diagram: 07/28/17 0502 07/28/17 0502 Results 24 hrs Laboratory Tests Test 07/29/17 20:46 Absolute Reticulocyte Count 0.042 Percent Reticulocyte Count 1.1 Lactate Dehydrogenase 527 Vitamin B12 Level 610 Folate 11.2 Medications Medications Current Medications Acetaminophen (Tylenol Tab) 650 mg Q6H PRN PO PAIN LEVEL 1-3 OR FEVER; Start 07/23/17 at 19:00 Acetaminophen (Tylenol Supp) 650 mg Q6H PRN [place] PAIN LEVEL 1-3 OR FEVER; Start 07/23/17 at 19:00 Docusate Sodium (Colace) 100 mg Q12H PRN PO CONSTIPATION Last administered on 07/25/17 19:51; Admin Dose 100 MG; Start 07/23/17 at 19:00 Magnesium Hydroxide (Milk Of Mag) 30 ml DAILY PRN PO CONSTIPATION Last administered on 07/26/17 08:38; Admin Dose 30 ML; Start 07/23/17 at 19:00 Bisacodyl (Dulcolax Supp) 10 mg DAILY PRN [place] CONSTIPATION; Start 07/23/17 at 19:00 Famotidine (Pepcid) 20 mg BID PO Last administered on 07/30/17 08:14; Admin Dose 20 MG; Start 07/24/17 at 21:00 Ondansetron HCl (Zofran Inj) 4 mg Q4H PRN IV NAUSEA AND/OR VOMITING Last administered on 07/30/17 08:15; Admin Dose 4 MG; Start 07/24/17 at 17:00 Senna/Docusate Sodium (Senokot-S) 2 tab DAILY PO Last administered on 08:15; Admin Dose 2 TAB; Start 07/28/17 at 11:29 Trazodone HCl (Desyrel) 50 mg HS PRN PO SLEEP; Start 07/27/17 at 11:00 Methadone HCl (Methadone Liq) 3 mg Q6 PO Last administered on 07/30/17 11:35 ; Admin Dose 3 MG; Start 07/27/17 at 12:00 Hydromorphone HCl (Dilaudid) 1 mg Q4H PRN IV PAIN Last administered on 08:15; Admin Dose 1 MG; Start 07/27/17 at 21:06 Polysaccharide Iron Complex (Niferex-150) 1 cap BID PO Last administered on 08:15; Admin Dose 1 CAP; Start 07/29/17 at 21:00 ERIK PATTEN Jul 30, 2017 12:42
[2017-07-30 15:17] VITALS: BP 111/57; RESP 18
--- NOTE | 2017-07-30 18:57 | RADRPT ---
PROCEDURE: MR Brain with and without contrast. CLINICAL INDICATION: Lung cancer. Evaluate for metastases. TECHNIQUE: Multiplanar multisequence MRI of the brain was performed before and after the administra tion of 10 cc of Magnevist.. COMPARISON: There are no similar studies submitted for comparison. FINDINGS: The ventricles and sulci are within normal limits. There is no abnormal intracranial enhancement. There is no acute infarction. There is no intracranial hemorrhage or extra-axial fluid collection. There is no mass effect. There is no midline shift. The brainstem is within normal limits. The posterior fossa is unremarkable. The normal intracranial, intravascular flow voids are preserved. The orbits are grossly unremarkable. The visualized paranasal sinuses are well-aerated. There is no destructive osseous lesion. IMPRESSION: 1. No abnormal intracranial enhancement to suggest metastases. 2. No acute infarction or intracranial hemorrhage. Further findings as detailed above. RPTAT: PP .Caleb Pace MD, MD Date Time Electronically viewed and signed by .Caleb Pace MD, on 07/30/2017 18:57 .F/
[2017-07-30 20:00] VITALS: BP 128/57; RESP 19
[2017-07-31] MEDS: METHADONE (1 MG/ML 5 ML PO UD SYG) PO SCH ×4 (00:20→17:34)
[2017-07-31] MEDS: METOCLOPRAMIDE 10 MG INJ IV SCH ×4 (00:57→17:34)
[2017-07-31 02:00] VITALS: BP 162/58; RESP 17
[2017-07-31 02:30] VITALS: BP 125/62
[2017-07-31] MEDS ORDERED: oxyCODONE 5 MG TAB PO PRN (06:30)
[2017-07-31 07:45] VITALS: BP 94/54; RESP 16
[2017-07-31] MEDS: POLYSACCHARIDE IRON COMPLEX CAP PO SCH ×2 (08:01→21:08)
[2017-07-31] MEDS: FAMOTIDINE 20 MG TAB PO SCH ×2 (08:01→21:08)
[2017-07-31] MEDS: SENNA/DOCUSATE NA (8.6MG/50MG) TAB PO SCH (08:02)
[2017-07-31] MEDS: ONDANSETRON 4 MG INJ IV PRN ×2 (08:04→21:08)
--- NOTE | 2017-07-31 10:13 | PN ---
Date/Time of Note Date/Time of Note DATE: 07/31/17 TIME: 10:13 Assessment/Plan VTE Prophylaxis VTE Prophylaxis Intervention: LMWH Lines/Catheters IV [facility]from [facility] Urinary Cath still in place: No Assessment/Plan Chief Complaint/Hosp Course 1. Large right lung mass. Status post needle biopsy. Pathology positive for poorly differentiated adenocarcinoma. Oncology evaluation ongoing. To be started on neoadjuvant chemotherapy as per oncology. 2. Right chest wall pain. Most probably secondary to underlying right lung mass. The patient on analgesics as per the pain management team. 3. Nicotine use. Cessation advised. 4. Anemia. Normocytic and hypochromic. Probably anemia chronic disease. 5. Fluids, electrolytes, and nutrition. Regular diet. 6. DVT prophylaxis. Subcutaneous Lovenox. 7. Plan. Await further recommendations from Oncology. Case discussed with Dr. Monk. Problems: Subjective 24 Hr Interval Summary Free Text/Dictation Right chest wall pain well controlled. Exam/Review of Systems Vital Signs Vitals Vital Signs Date Time Temp Pulse Resp B/P Pulse Ox O2 Delivery O2 Flow Rate FiO2 07/31/17 07:45 97.9 71 16 94/54 97 Intake and Output 07/30/17 07/30/17 07/31/17 14:59 22:59 06:59 Intake Total 1500 ml 240 ml Balance 1500 ml 240 ml Exam General: Adequately build 47 year-old female lying in bed in no apparent distress. HEENT: Normocephalic, atraumatic. Eyes: Anicteric sclerae, conjunctivae clear. ENT: Nasal septum midline, oral mucosa moist. Neck supple, no JVD noticed. Respiratory: Diminished breath sounds. No use of accessory muscles of respiration. No adventitious breath sounds. Cardiovascular: S1, S2 heard. No murmurs or gallops. Abdomen: Soft, nontender, and nondistended. Bowel sounds positive in all 4 quadrants. Genitourinary: Deferred. Extremities: No cyanosis, no clubbing, no edema. Peripheral pulses palpable. Neurologic: Cranial nerves II through XII grossly intact. The patient is awake, alert, and oriented. Skin: Normal skin turgor. No skin rashes. Results Result Diagram: 07/28/17 0502 07/28/17 0502 Medications Medications Current Medications Acetaminophen (Tylenol Tab) 650 mg Q6H PRN PO PAIN LEVEL 1-3 OR FEVER; Start 07/23/17 at 19:00 Acetaminophen (Tylenol Supp) 650 mg Q6H PRN [place] PAIN LEVEL 1-3 OR FEVER; Start 07/23/17 at 19:00 Docusate Sodium (Colace) 100 mg Q12H PRN PO CONSTIPATION Last administered on 07/25/17 19:51; Admin Dose 100 MG; Start 07/23/17 at 19:00 Magnesium Hydroxide (Milk Of Mag) 30 ml DAILY PRN PO CONSTIPATION Last administered on 07/26/17 08:38; Admin Dose 30 ML; Start 07/23/17 at 19:00 Bisacodyl (Dulcolax Supp) 10 mg DAILY PRN [place] CONSTIPATION; Start 07/23/17 at 19:00 Famotidine (Pepcid) 20 mg BID PO Last administered on 07/31/17 08:01; Admin Dose 20 MG; Start 07/24/17 at 21:00 Ondansetron HCl (Zofran Inj) 4 mg Q4H PRN IV NAUSEA AND/OR VOMITING Last administered on 07/31/17 08:04; Admin Dose 4 MG; Start 07/24/17 at 17:00 Senna/Docusate Sodium (Senokot-S) 2 tab DAILY PO Last administered on 08:02; Admin Dose 2 TAB; Start 07/28/17 at 11:29 Trazodone HCl (Desyrel) 50 mg HS PRN PO SLEEP; Start 07/27/17 at 11:00 Methadone HCl (Methadone Liq) 3 mg Q6 PO Last administered on 07/31/17 06:01 ; Admin Dose 3 MG; Start 07/27/17 at 12:00 Polysaccharide Iron Complex (Niferex-150) 1 cap BID PO Last administered on 08:01; Admin Dose 1 CAP; Start 07/29/17 at 21:00 Metoclopramide HCl (Reglan) 10 mg Q6 IV Last administered on 07/31/17 06:01; Admin Dose 10 MG; Start 07/31/17 at 01:00 Oxycodone HCl (Roxicodone) 5 mg Q3H PRN PO PAIN Last administered on 08:02; Admin Dose 5 MG; Start 07/31/17 at 06:30 NINFA GOODMAN NP Jul 31, 2017 10:13
--- NOTE | 2017-07-31 13:02 | CONS ---
Date/Time of Note Date/Time of Note DATE: 07/31/17 TIME: 12:58 Assessment/Plan Assessment/Plan Chief Complaint/Hosp Course This is a 47-year-old female who was admitted to [facility] with pre-diagnosed right upper quadrant mass. I am asked see patient in pain management consultation. She has had increasing right upper quadrant chest and back pain since March pain is described as a throbbing pain with peaks and troughs graded 10/10. Pain is described also has an occasional lancinating discomfort same distribution. Denies itching mental cloudiness sweating fatigue associated with her pain. States that she was prescribed Agra as an outpatient but was difficult to have pain medications refilled and she went for prolonged periods of time without any pain control meds. Patient has never had any altercation with law enforcement. She smokes but she denies any other recreational drug use, she denies any problems with substances in the past. She appears to be in good spirits and not impaired. She has not been asked for increasing doses or decreasing intervals of pain control medications. Nor is she insisting on certain pain control medications. Patient is not a victim of abuse. With current pain control medication she only has partial relief. As an outpatient the degree of her pain was interfering with her physical functioning, sleeping patterns and overall function. As an outpatient she was only taking 5-6 Agra daily and still having significant discomfort. Problems: Additional Assessment/Plan This is a postdated note for my visit July 29 She was comfortable pain is under better control but she continues to have complaints of nausea. Pain is rated 5/10 after being medicated. Denies somnolence, sleepiness pruritus headache earache dizziness diplopia disorientation Plan We will not change her current medications we will adjust her anti-emetics follow clinical findings and adjust pain medications next visit depending upon pain level and systemic symptoms. Consultation Date/Type/Reason Admit Date/Time Jul 23, 2017 at 10:52 Psychological: no complaints Past Medical History Medical History: no pertinent history Past Surgical History Past Surgical Hx: noncontributory Social History Alcohol Use: rarely Smoking Status: Former smoker (Quit smoking in March 2017 however reports a 25+ year history of cigarette smoking 1 pack every 2-3 days) Drug Use: none Exam/Review of Systems Vital Signs Vitals Vital Signs Date Time Temp Pulse Resp B/P Pulse Ox O2 Delivery O2 Flow Rate FiO2 07/31/17 07:45 97.9 71 16 94/54 97 Intake and Output 07/30/17 07/30/17 07/31/17 15:00 23:00 07:00 Intake Total 1500 ml 240 ml Balance 1500 ml 240 ml Exam Constitutional: alert, oriented, well developed 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, nl mental status, nl speech, nl strength, No DTR's symmetric, No confused, No focal weakness, No lethargic, No numbness , No other, No reflexes, No unresponsive Results Result Diagram: 07/28/17 0502 07/28/17 0502 Medications Medications Current Medications Acetaminophen (Tylenol Tab) 650 mg Q6H PRN PO PAIN LEVEL 1-3 OR FEVER; Start 07/23/17 at 19:00 Acetaminophen (Tylenol Supp) 650 mg Q6H PRN [place] PAIN LEVEL 1-3 OR FEVER; Start 07/23/17 at 19:00 Docusate Sodium (Colace) 100 mg Q12H PRN PO CONSTIPATION Last administered on 07/25/17 19:51; Admin Dose 100 MG; Start 07/23/17 at 19:00 Magnesium Hydroxide (Milk Of Mag) 30 ml DAILY PRN PO CONSTIPATION Last administered on 07/26/17 08:38; Admin Dose 30 ML; Start 07/23/17 at 19:00 Bisacodyl (Dulcolax Supp) 10 mg DAILY PRN [place] CONSTIPATION; Start 07/23/17 at 19:00 Famotidine (Pepcid) 20 mg BID PO Last administered on 07/31/17 08:01; Admin Dose 20 MG; Start 07/24/17 at 21:00 Ondansetron HCl (Zofran Inj) 4 mg Q4H PRN IV NAUSEA AND/OR VOMITING Last administered on 07/31/17 08:04; Admin Dose 4 MG; Start 07/24/17 at 17:00 Senna/Docusate Sodium (Senokot-S) 2 tab DAILY PO Last administered on 08:02; Admin Dose 2 TAB; Start 07/28/17 at 11:29 Trazodone HCl (Desyrel) 50 mg HS PRN PO SLEEP; Start 07/27/17 at 11:00 Methadone HCl (Methadone Liq) 3 mg Q6 PO Last administered on 07/31/17 11:32 ; Admin Dose 3 MG; Start 07/27/17 at 12:00 Polysaccharide Iron Complex (Niferex-150) 1 cap BID PO Last administered on 08:01; Admin Dose 1 CAP; Start 07/29/17 at 21:00 Metoclopramide HCl (Reglan) 10 mg Q6 IV Last administered on 07/31/17 11:32; Admin Dose 10 MG; Start 07/31/17 at 01:00 Oxycodone HCl (Roxicodone) 5 mg Q3H PRN PO PAIN Last administered on 08:02; Admin Dose 5 MG; Start 07/31/17 at 06:30 DA OSPINA Jul 31, 2017 13:01 19:00 Famotidine (Pepcid) 20 mg BID PO Last administered on 07/31/17 08:01; Admin Dose 20 MG; Start 07/24/17 at 21:00 Ondansetron HCl (Zofran Inj) 4 mg Q4H PRN IV NAUSEA AND/OR VOMITING Last administered on 07/31/17 08:04; Admin Dose 4 MG; Start 07/24/17 at 17:00 Senna/Docusate Sodium (Senokot-S) 2 tab DAILY PO Last administered on 08:02; Admin Dose 2 TAB; Start 07/28/17 at 11:29 Trazodone HCl (Desyrel) 50 mg HS PRN PO SLEEP; Start 07/27/17 at 11:00 Methadone HCl (Methadone Liq) 3 mg Q6 PO Last administered on 07/31/17 11:32 ; Admin Dose 3 MG; Start 07/27/17 at 12:00 Polysaccharide Iron Complex (Niferex-150) 1 cap BID PO Last administered on 08:01; Admin Dose 1 CAP; Start 07/29/17 at 21:00 Metoclopramide HCl (Reglan) 10 mg Q6 IV Last administered on 07/31/17 11:32; Admin Dose 10 MG; Start 07/31/17 at 01:00 Oxycodone HCl (Roxicodone) 5 mg Q3H PRN PO PAIN Last administered on 08:02; Admin Dose 5 MG; Start 07/31/17 at 06:30 DA OSPINA Jul 31, 2017 13:01
--- NOTE | 2017-07-31 13:05 | CONS ---
Date/Time of Note Date/Time of Note DATE: 07/31/17 TIME: 13:02 Consult Date/Type/Reason Admit Date/Time Jul 23, 2017 at 10:52 Initial Consult Date 07/30/17 Type of Consultation: Pain management Ordering Provider: UMU VALVERDE MD Subjective She denies severe pain, still having low-grade nausea without vomiting without dizziness diplopia disorientation. Denies pruritus excessive sedation she is compliant with her pain management regimen. Objective Vital Signs Date Time Temp Pulse Resp B/P Pulse Ox O2 Delivery O2 Flow Rate FiO2 07/31/17 07:45 97.9 71 16 94/54 97 Intake and Output 07/30/17 07/30/17 07/31/17 15:00 23:00 07:00 Intake Total 1500 ml 240 ml Balance 1500 ml 240 ml Results/Medications Result Diagram: 07/28/17 0502 07/28/17 0502 Medications Current Medications Acetaminophen (Tylenol Tab) 650 mg Q6H PRN PO PAIN LEVEL 1-3 OR FEVER; Start 07/23/17 at 19:00 Acetaminophen (Tylenol Supp) 650 mg Q6H PRN [place] PAIN LEVEL 1-3 OR FEVER; Start 07/23/17 at 19:00 Docusate Sodium (Colace) 100 mg Q12H PRN PO CONSTIPATION Last administered on 07/25/17 19:51; Admin Dose 100 MG; Start 07/23/17 at 19:00 Magnesium Hydroxide (Milk Of Mag) 30 ml DAILY PRN PO CONSTIPATION Last administered on 07/26/17 08:38; Admin Dose 30 ML; Start 07/23/17 at 19:00 Bisacodyl (Dulcolax Supp) 10 mg DAILY PRN [place] CONSTIPATION; Start 07/23/17 at 19:00 Famotidine (Pepcid) 20 mg BID PO Last administered on 07/31/17 08:01; Admin Dose 20 MG; Start 07/24/17 at 21:00 Ondansetron HCl (Zofran Inj) 4 mg Q4H PRN IV NAUSEA AND/OR VOMITING Last administered on 07/31/17 08:04; Admin Dose 4 MG; Start 07/24/17 at 17:00 Senna/Docusate Sodium (Senokot-S) 2 tab DAILY PO Last administered on 08:02; Admin Dose 2 TAB; Start 07/28/17 at 11:29 Trazodone HCl (Desyrel) 50 mg HS PRN PO SLEEP; Start 07/27/17 at 11:00 Methadone HCl (Methadone Liq) 3 mg Q6 PO Last administered on 07/31/17 11:32 ; Admin Dose 3 MG; Start 07/27/17 at 12:00 Polysaccharide Iron Complex (Niferex-150) 1 cap BID PO Last administered on 08:01; Admin Dose 1 CAP; Start 07/29/17 at 21:00 Metoclopramide HCl (Reglan) 10 mg Q6 IV Last administered on 07/31/17 11:32; Admin Dose 10 MG; Start 07/31/17 at 01:00 Oxycodone HCl (Roxicodone) 5 mg Q3H PRN PO PAIN Last administered on 08:02; Admin Dose 5 MG; Start 07/31/17 at 06:30 Assessment/Plan Additional Assessment/Plan Lung cancer No evidence of metastasis History of smoking Acute pain management Have spoken with her about discontinuing Dilaudid as it may be causing her nausea. But I did tell her there may be a number of other reasons that could be causing her to feel ill. However will discontinue Dilaudid and switch to oxycodone immediate release low-dose and follow her clinical course. DA OSPINA Jul 31, 2017 13:05
--- NOTE | 2017-07-31 16:45 | CONS ---
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 this has been discussed with radiation oncologist Dr. 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 -continue Dilantin TID #Weakness -continue physical therapy #insomnia -continue Trazodone Problems: Consultation Date/Type/Reason Admit Date/Time Jul 23, 2017 at 10:52 Initial Consult Date 07/30/17 Type of Consultation: oncology Reason for Consultation R sided lung mass Referring Provider: UMU VALVERDE MD 24 HR Interval Summary Free Text/Dictation pain is under better control Exam/Review of Systems Vital Signs Vitals Vital Signs Date Time Temp Pulse Resp B/P Pulse Ox O2 Delivery O2 Flow Rate FiO2 07/31/17 07:45 97.9 71 16 94/54 97 Intake and Output 07/30/17 07/30/17 07/31/17 15:00 23:00 07:00 Intake Total 1500 ml 240 ml Balance 1500 ml 240 ml Exam Constitutional: alert, oriented Psych: nl mood/affect Head: normocephalic Eyes: nl conjunctiva ENMT: nl external ears & nose Neck: non-tender, supple Respiratory: diminished breath sounds (in r lung) Cardiovascular: regular rate and rhythm Gastrointestinal: soft Musculoskeletal: nl extremities to inspection Extremities: normal pulses Results Result Diagram: 07/28/17 0502 07/28/17 0502 Medications Medications Current Medications Acetaminophen (Tylenol Tab) 650 mg Q6H PRN PO PAIN LEVEL 1-3 OR FEVER; Start 07/23/17 at 19:00 Acetaminophen (Tylenol Supp) 650 mg Q6H PRN [place] PAIN LEVEL 1-3 OR FEVER; Start 07/23/17 at 19:00 Docusate Sodium (Colace) 100 mg Q12H PRN PO CONSTIPATION Last administered on 07/25/17 19:51; Admin Dose 100 MG; Start 07/23/17 at 19:00 Magnesium Hydroxide (Milk Of Mag) 30 ml DAILY PRN PO CONSTIPATION Last administered on 07/26/17 08:38; Admin Dose 30 ML; Start 07/23/17 at 19:00 Bisacodyl (Dulcolax Supp) 10 mg DAILY PRN [place] CONSTIPATION; Start 07/23/17 at 19:00 Famotidine (Pepcid) 20 mg BID PO Last administered on 07/31/17 08:01; Admin Dose 20 MG; Start 07/24/17 at 21:00 Ondansetron HCl (Zofran Inj) 4 mg Q4H PRN IV NAUSEA AND/OR VOMITING Last administered on 07/31/17 08:04; Admin Dose 4 MG; Start 07/24/17 at 17:00 Senna/Docusate Sodium (Senokot-S) 2 tab DAILY PO Last administered on 08:02; Admin Dose 2 TAB; Start 07/28/17 at 11:29 Trazodone HCl (Desyrel) 50 mg HS PRN PO SLEEP; Start 07/27/17 at 11:00 Methadone HCl (Methadone Liq) 3 mg Q6 PO Last administered on 07/31/17 11:32 ; Admin Dose 3 MG; Start 07/27/17 at 12:00 Polysaccharide Iron Complex (Niferex-150) 1 cap BID PO Last administered on 08:01; Admin Dose 1 CAP; Start 07/29/17 at 21:00 Metoclopramide HCl (Reglan) 10 mg Q6 IV Last administered on 10/19/17at 11:32; Admin Dose 10 MG; Start 07/31/17 at 01:00 Oxycodone HCl (Roxicodone) 5 mg Q3H PRN PO PAIN Last administered on t 08:02; Admin Dose 5 MG; Start 07/31/17 at 06:30 ROYAL HERNANDEZ M.D. Jul 31, 2017 16:44
[2017-07-31 19:55] VITALS: BP 129/62; RESP 18
[2017-08-01] MEDS: METHADONE (1 MG/ML 5 ML PO UD SYG) PO SCH ×4 (00:08→17:51)
[2017-08-01] MEDS: METOCLOPRAMIDE 10 MG INJ IV SCH ×4 (00:08→17:51)
[2017-08-01 02:03] VITALS: BP 92/54; RESP 20
[2017-08-01 08:00] VITALS: BP 105/58; RESP 19
[2017-08-01] MEDS: FAMOTIDINE 20 MG TAB PO SCH ×2 (08:56→20:40)
[2017-08-01] MEDS: POLYSACCHARIDE IRON COMPLEX CAP PO SCH ×2 (08:56→20:40)
[2017-08-01] MEDS: SENNA/DOCUSATE NA (8.6MG/50MG) TAB PO SCH (08:56)
--- NOTE | 2017-08-01 13:37 | PN ---
Date/Time of Note Date/Time of Note DATE: 08/01/17 TIME: 13:32 Assessment/Plan VTE Prophylaxis VTE Prophylaxis Intervention: LMWH Lines/Catheters IV Catheter Type (from [facility]): Saline Lock Urinary Cath still in place: No Assessment/Plan Chief Complaint/Hosp Course 1. Large right lung mass. Status post needle biopsy. Pathology positive for poorly differentiated adenocarcinoma. Oncology evaluation ongoing. To be started on neoadjuvant chemotherapy along with radiation therapy as per oncology. 2. Right chest wall pain. Most probably secondary to underlying right lung mass. The patient on analgesics as per the pain management team. 3. Nicotine use. Cessation advised. 4. Anemia. Normocytic and hypochromic. Probably anemia chronic disease. 5. Fluids, electrolytes, and nutrition. Regular diet. 6. DVT prophylaxis. Subcutaneous Lovenox. 7. Plan. Await further recommendations from Oncology. Awaiting case management to authorize appointment with Dr. Martinez for radiation therapy. Case discussed with Dr. Monk. Problems: Subjective 24 Hr Interval Summary Free Text/Dictation Complains of nausea. Denies any vomiting. Exam/Review of Systems Vital Signs Vitals Vital Signs Date Time Temp Pulse Resp B/P Pulse Ox O2 Delivery O2 Flow Rate FiO2 08/01/17 08:00 98.9 71 19 105/58 96 Intake and Output 07/31/17 07/31/17 08/01/17 15:00 23:00 07:00 Intake Total 650 ml 300 ml Balance 650 ml 300 ml Exam General: Adequately build 47 year-old female lying in bed in no apparent distress. HEENT: Normocephalic, atraumatic. Eyes: Anicteric sclerae, conjunctivae clear. ENT: Nasal septum midline, oral mucosa moist. Neck supple, no JVD noticed. Respiratory: Diminished breath sounds. No use of accessory muscles of respiration. No adventitious breath sounds. Cardiovascular: S1, S2 heard. No murmurs or gallops. Abdomen: Soft, nontender, and nondistended. Bowel sounds positive in all 4 quadrants. Genitourinary: Deferred. Extremities: No cyanosis, no clubbing, no edema. Peripheral pulses palpable. Neurologic: Cranial nerves II through XII grossly intact. The patient is awake, alert, and oriented. Skin: Normal skin turgor. No skin rashes. Results Result Diagram: 07/28/17 0502 07/28/17 0502 Medications Medications Current Medications Acetaminophen (Tylenol Tab) 650 mg Q6H PRN PO PAIN LEVEL 1-3 OR FEVER; Start 07/23/17 at 19:00 Acetaminophen (Tylenol Supp) 650 mg Q6H PRN [place] PAIN LEVEL 1-3 OR FEVER; Start 07/23/17 at 19:00 Docusate Sodium (Colace) 100 mg Q12H PRN PO CONSTIPATION Last administered on 07/25/17 19:51; Admin Dose 100 MG; Start 07/23/17 at 19:00 Magnesium Hydroxide (Milk Of Mag) 30 ml DAILY PRN PO CONSTIPATION Last administered on 07/26/17 08:38; Admin Dose 30 ML; Start 07/23/17 at 19:00 Bisacodyl (Dulcolax Supp) 10 mg DAILY PRN [place] CONSTIPATION; Start 07/23/17 at 19:00 Famotidine (Pepcid) 20 mg BID PO Last administered on 08/01/17 08:56; Admin Dose 20 MG; Start 07/24/17 at 21:00 Ondansetron HCl (Zofran Inj) 4 mg Q4H PRN IV NAUSEA AND/OR VOMITING Last administered on 07/31/17 21:08; Admin Dose 4 MG; Start 07/24/17 at 17:00 Senna/Docusate Sodium (Senokot-S) 2 tab DAILY PO Last administered on 08:56; Admin Dose 2 TAB; Start 07/28/17 at 11:29 Trazodone HCl (Desyrel) 50 mg HS PRN PO SLEEP; Start 07/27/17 at 11:00 Methadone HCl (Methadone Liq) 3 mg Q6 PO Last administered on 08/01/17 12:03 ; Admin Dose 3 MG; Start 07/27/17 at 12:00 Polysaccharide Iron Complex (Niferex-150) 1 cap BID PO Last administered on 08:56; Admin Dose 1 CAP; Start 07/29/17 at 21:00 Metoclopramide HCl (Reglan) 10 mg Q6 IV Last administered on 08/01/17 12:03; Admin Dose 10 MG; Start 07/31/17 at 01:00 Oxycodone HCl (Roxicodone) 5 mg Q3H PRN PO PAIN Last administered on 08:02; Admin Dose 5 MG; Start 07/31/17 at 06:30 NINFA GOODMAN NP Aug 01, 2017 13:37
[2017-08-01 14:00] VITALS: BP 93/53; RESP 19
--- NOTE | 2017-08-01 19:38 | CONS ---
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 this has been discussed with radiation oncologist Dr. 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 will initiate treatment as an out patient Problems: Consultation Date/Type/Reason Admit Date/Time Jul 23, 2017 at 10:52 Initial Consult Date 07/30/17 Type of Consultation: oncology Reason for Consultation R lung mass Referring Provider: UMU VALVERDE MD 24 HR Interval Summary Free Text/Dictation no acute overnight events. lung pain is under control with current pain medications Exam/Review of Systems Vital Signs Vitals Vital Signs Date Time Temp Pulse Resp B/P Pulse Ox O2 Delivery O2 Flow Rate FiO2 08/01/17 14:00 98.4 19 93/53 99 08/01/17 08:00 71 Intake and Output 07/31/17 07/31/17 08/01/17 15:00 23:00 07:00 Intake Total 650 ml 300 ml Balance 650 ml 300 ml Exam Constitutional: alert, oriented Psych: no complaints Head: normocephalic Eyes: nl conjunctiva ENMT: nl external ears & nose Neck: non-tender, supple Respiratory: diminished breath sounds (in right lung) Cardiovascular: regular rate and rhythm Gastrointestinal: soft Musculoskeletal: nl extremities to inspection Results Result Diagram: 07/28/17 0502 07/28/17 0502 Medications Medications Current Medications Acetaminophen (Tylenol Tab) 650 mg Q6H PRN PO PAIN LEVEL 1-3 OR FEVER; Start 07/23/17 at 19:00 Acetaminophen (Tylenol Supp) 650 mg Q6H PRN [place] PAIN LEVEL 1-3 OR FEVER; Start 07/23/17 at 19:00 Docusate Sodium (Colace) 100 mg Q12H PRN PO CONSTIPATION Last administered on 07/25/17 19:51; Admin Dose 100 MG; Start 07/23/17 at 19:00 Magnesium Hydroxide (Milk Of Mag) 30 ml DAILY PRN PO CONSTIPATION Last administered on 07/26/17 08:38; Admin Dose 30 ML; Start 07/23/17 at 19:00 Bisacodyl (Dulcolax Supp) 10 mg DAILY PRN [place] CONSTIPATION; Start 07/23/17 at 19:00 Famotidine (Pepcid) 20 mg BID PO Last administered on 08/01/17 08:56; Admin Dose 20 MG; Start 07/24/17 at 21:00 Ondansetron HCl (Zofran Inj) 4 mg Q4H PRN IV NAUSEA AND/OR VOMITING Last administered on 07/31/17 21:08; Admin Dose 4 MG; Start 07/24/17 at 17:00 Senna/Docusate Sodium (Senokot-S) 2 tab DAILY PO Last administered on 08:56; Admin Dose 2 TAB; Start 07/28/17 at 11:29 Trazodone HCl (Desyrel) 50 mg HS PRN PO SLEEP; Start 07/27/17 at 11:00 Methadone HCl (Methadone Liq) 3 mg Q6 PO Last administered on 08/01/17 17:51 ; Admin Dose 3 MG; Start 07/27/17 at 12:00 Polysaccharide Iron Complex (Niferex-150) 1 cap BID PO Last administered on 08:56; Admin Dose 1 CAP; Start 07/29/17 at 21:00 Metoclopramide HCl (Reglan) 10 mg Q6 IV Last administered on 08/01/17 17:51; Admin Dose 10 MG; Start 07/31/17 at 01:00 Oxycodone HCl (Roxicodone) 5 mg Q3H PRN PO PAIN Last administered on 08:02; Admin Dose 5 MG; Start 07/31/17 at 06:30 ROYAL HERNANDEZ M.D. Aug 01, 2017 19:38
[2017-08-01 19:45] VITALS: BP 100/55; RESP 16
[2017-08-02] MEDS: METOCLOPRAMIDE 10 MG INJ IV SCH ×3 (00:22→12:00)
[2017-08-02] MEDS: METHADONE (1 MG/ML 5 ML PO UD SYG) PO SCH ×3 (00:22→12:00)
[2017-08-02 02:02] VITALS: BP 102/55; RESP 16
[2017-08-02 08:00] VITALS: BP 94/50; RESP 18
[2017-08-02] MEDS: FAMOTIDINE 20 MG TAB PO SCH (08:11)
[2017-08-02] MEDS: SENNA/DOCUSATE NA (8.6MG/50MG) TAB PO SCH (08:11)
[2017-08-02] MEDS: POLYSACCHARIDE IRON COMPLEX CAP PO SCH (08:11)
--- NOTE | 2017-08-02 11:53 | PDOCDIS ---
Discharge Instructions DIAGNOSIS Discharge Diagnosis Adenocarcinoma of the lung. CONDITION Patient Condition: Stable HOME CARE INSTRUCTIONS: Diet Instructions: Regular ACTIVITY: Activity Restrictions: No Restrictions FOLLOW UP/APPOINTMENTS Follow-up Plan 1. Aura Patterson MD Specialty Oncology, Hematology Office Address [id number] [address] Office 2. Lc Lawrence MD Specialty Radiation Oncology Office Address [address] [place] [address] Office OTHER ORDERS: Other Orders: 1. Take pain medications as needed. 2. Follow-up with . Please call for appointment. 3. Activities as tolerated. 4. Please go to the nearest emergency room if you have significant shortness of breath. NINFA GOODMAN NP Aug 02, 2017 11:53
[2017-08-02] MEDS ORDERED: NIF150 PO (11:55)
[2017-08-02] MEDS ORDERED: HYDR-906 PO (11:55)
[2017-08-02] MEDS ORDERED: DOCU-144 PO (11:55)
--- NOTE | 2017-08-02 12:03 | DS ---
Date/Time of Note Date/Time of Note DATE: 08/02/17 TIME: 12:01 Discharge Summary Admission/Discharge Info Admit Date/Time Jul 23, 2017 at 10:52 Discharge Date/Time Discharge Diagnosis 1. Poorly differentiated adenocarcinoma of the lung. 2. Iron deficiency anemia. 3. Nicotine use. Patient Condition: Stable Consults 1. Aura Patterson MD, Oncology. 2. Justin Agudelo MD, Pulmonology. 3. Melinda Bashir MD, Pain Management. Procedures Chest CT IMPRESSION: Large heterogeneously enhancing mass of the anteromedial right upper lobe suggestive of carcinoma. Correlate with recent biopsy results. Mediastinal and right hilar lymphadenopathy. CT-guided right lung Biopsy IMPRESSION: Uncomplicated CT-guided lung biopsy. CT of the Abdomen and Pelvis IMPRESSION: No evidence of abdominopelvic metastatic disease. No evidence of abdominopelvic mass, lymphadenopathy or acute inflammatory pathology. Brain MRI IMPRESSION: 1. No abnormal intracranial enhancement to suggest metastases. 2. No acute infarction or intracranial hemorrhage. Hx of Present Illness This is a 47-year-old female with recent diagnosis of right lung tumor worked up in March 2017 who does follow-up with outpatient computer support specialist Dr. Trujillo, who came to [facility] from outside hospital ([place]) due to insurance issues due to reports of increased right-sided chest pain. No associated symptoms. She did report the pain as 10 out of 10 at times and feels like something is "pushing on her chest". Patient did reportedly have CT scan imaging done at [place] that showed her to have an enlarging right lung mass. On the results she was noted to be slightly anemic with a hemoglobin of 10.9 and hematocrit of 33.7. Basic metabolic panel was unremarkable. Vital signs overall remained stable except with oxygen saturation of 90% on room air. Patient did state that she was tentatively planned for needle guided biopsy as outpatient however due to her worsening pain she subsequently went to [facility]. Hospital Course The patient was admitted to inpatient setting. Pulmonology was called on the patient. Pain management consult was also obtained because of the patient's significant right chest wall pain. The patient underwent a CT scan of the chest that showed large heterogeneously enhancing mass of the anteromedial right upper lobe suggestive of carcinoma. The CT also showed mediastinal and right hilar lymphadenopathy. The patient underwent a CT-guided needle biopsy of the right lung mass on 07/25/2017. The patient's right lung mass biopsy showed poorly differentiated adenocarcinoma. Consequently oncology consult was obtained. The patient underwent extensive imaging to evaluate for any metastasis. The patient's a CT scan of the abdomen and pelvis and chest was negative for any metastasis. The patient's brain MRI was negative for any metastasis. Oncology recommended neoadjuvant chemotherapy along with radiation therapy. Case management consult was put in for authorization with Dr. Meng for appointment and subsequent radiation therapy. As per oncology, the patient can be started on chemotherapy as outpatient. The patient was noticed to have normocytic and hypochromic anemia. The patient' s iron panel showed iron deficiency. Consequently, the patient was started on iron supplements as per oncology. The patient continued to have right chest wall pain, most probably secondary to her underlying significantly large lung tumor. The patient was maintained on methadone as per the pain management team. The patient's methadone will be discontinued as per pain management team upon discharge. The patient had a stable, but relatively longer hospital course. The patient is stable to be discharged home today. Discharge Instructions 1. Take pain medications as needed. 2. Follow-up with . Please call for appointment. Follow-up with Dr. Lawrence as per the appointment (Case Management to arrange). 3. Activities as tolerated. 4. Please go to the nearest emergency room if you have significant shortness of breath. The patient verbalized understanding of her discharge instructions. At this time I would like to thank all the consultants for seeing the patient and providing clinical recommendations. Case discussed with Dr. Monk. Home Meds Active Scripts Ondansetron HCl (Zofran) 4 Mg/5 Ml Solution, 4 MG PO Q6H for NAUSEA, #30 Prov:NINFA GOODMAN NP 08/02/17 Docusate Sodium* (Colace*) 100 Mg Capsule, 100 MG PO BID, #30 CAP Prov:NINFA GOODMAN NP 08/02/17 Hydrocodone/Acetaminophen ([place] 5-325 Tablet) 1 Each Tablet, 1 EACH PO Q6H for PAIN, #30 TAB Prov:NINFA GOODMAN NP 08/02/17 Polysaccharide Iron Complex* (NIFEREX-150*) 1 Cap Cap, 1 CAP PO BID, #60 CAP Prov:NINFA GOODMAN NP 08/02/17 Follow-up Plan 1. Aura Patterson MD Specialty Oncology, Hematology Office Address [id number] [place] [id number] Office 2. Lc Lawrence MD Specialty Radiation Oncology Office Address [address] [place] [address] Office Primary Care Provider Care Physician No Primary Time spent on discharge: > 30 minutes Pending Labs MICROSCOPIC DIAGNOSIS: Right lung mass, CT-guided needle core biopsies: -- Poorly-differentiated adenocarcinoma NINFA GOODMAN NP Aug 02, 2017 12:03
[2017-08-02] MEDS ORDERED: ONDA4SOL2 PO (14:01)
== END 2017-08-02 13:44 | disposition home or self-care (01) | DRG 182 ==
LOC: E/R 09:58 → PP2 10:52
PROVIDERS: ADMIT Internal Medicine; ATTEND Internal Medicine
PROC: 0BDL8ZX Extraction of Left Lung, Via Natural or Artificial Opening Endoscopic, Diagnostic (ICD-10-PCS; principal; 2017-07-25)
DX: C34.91 Malignant neoplasm of unspecified part of right bronchus or lung (principal); J44.9 Chronic obstructive pulmonary disease, unspecified; G89.3 Neoplasm related pain (acute) (chronic); D64.9 Anemia, unspecified; R59.1 Generalized enlarged lymph nodes; Z72.0 Tobacco use; R07.89 Other chest pain; R11.0 Nausea
CPT/HCPCS: 70552; 71010; 71260; 74177; 77012; 80048; 80053; 80061; 82607; 82728; 82746; 83010; 83036; 83540; 83615; 83735; 84100; 84436; 84443; 84479; 84484; 85025; 85045; 85610; 85730; 88305; 88313; 88341; 88342; 96374; 96375; 96376; J1170; J1885; J2250; J2270; J2405; J2765; J3010; Q9967